=== PATIENT | female | born 1985 ===

== ENCOUNTER 2020-04-04 20:00 | Emergency (ER) | payer MEDICAID, SELFPAY ==
[2020-04-04 20:03] VITALS: BP 99/52; PULSE 78; RESP 16; TEMP 37; O2SAT 100; BMI 22.3
--- NOTE | 2020-04-04 21:19 | PC.NURSE ---
PER MD ROBERTO CHAHAL VERBAL ORDER TO BEDSIDE. RN WITNESS TO [facility]RE ABCSESS NOT READY TO BE DRAINED PER MD MEJIA. AGUILA RETURNED TO [facility].
--- NOTE | 2020-04-04 21:23 | ED_ITS ---
HPI - Skin/Abscess/Foreign Bdy General Chief complaint: Skin/Abscess/Foreign Body Stated complaint: ABSCESS Time Seen by Provider: 04/04/20 20:51 Source: patient Mode of arrival: ambulatory Limitations: no limitations History of Present Illness HPI narrative: 34-year-old female who presents to emergency department for evaluation of an abscess in her right groin area. She states that she has 2 small abscesses that have gotten progressively worse over the past week. She states that she is having moderate to severe pain over the abscesses. She describes the pain as a sharp burning pain which is constant and is 8/10. She denies systemic symptoms such as fever, chills, nausea, vomiting, fatigue or weakness. She states that she gets these cysts often and she had a cyst 1 year prior. She has never had to have the cyst I&D. She states that the pain has gotten to the point where she is having trouble working despite taking tramadol. Related Data Previous Rx's Medication Instructions Recorded doxycycline hyclate [Morgidox] 100 mg PO BID 7 Days #14 cap 04/04/20 oxycodone 5 mg PO Q4H PRN 3 Days #10 tab 04/04/20 Allergies Allergy/AdvReac Type Severity Reaction Status Date / Time No Known Allergies Allergy Verified 04/04/20 20:09 [No Known Allergies*] Review of Systems Review of Systems: Yes all other systems are reviewed and are negative Constitutional: Constitutional: Reports as per HPI Eyes: Eyes: Reports as per HPI ENT: Reports as per HPI Cardiovascular: Cardiovascular: Reports as per HPI Respiratory: Respiratory: Reports as per HPI Gastrointestinal: Gastrointestinal: Reports as per HPI Genitourinary: Genitourinary: Reports as per HPI Musculoskeletal: Musculoskeletal: Reports as per HPI Integumentary/Breasts: Skin/Breast: Reports as per HPI Neurologic: Reports as per HPI Psychiatric: Psychiatric: Reports as per HPI Allergic/Immunologic: Allergic/Immunologic: Reports as per HPI PMFSH Past Medical History [facility] Narrative: 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 She denies tobacco, alcohol and drug use. Medical History (Updated 04/04/20 @ 21:29 by Diego Rodriguez MD) Circulation problem Social History Social History Alcohol intake: never Smoked in Last 30 Days: No Use of substances other than those prescribed or required for medical reasons: No Advance Directives: No Advance Directives Information Provided: Yes Physical Exam Vital Signs: Vital Signs: Last Vital Signs Temp 98.6 F 04/04/20 20:03 Pulse 78 04/04/20 20:03 Resp 16 04/04/20 20:03 BP 99/52 L 04/04/20 20:03 Pulse Ox 100 04/04/20 20:03 Body Mass Index 22.3 Const: General: cooperative and healthy appearing Nutritional Appearance: average body habitus Orientation/consciousness: oriented to person and oriented to place Limitations: no limitations HENMT: Head: Yes normal to inspection Ears: hearing grossly normal bilaterally General nose exam: Normal external nose present Eyes: General: appearance normal, both eyes and all related structures Neck: Neck: Yes normal visual inspection : External Female Exam: other (2 small cystic lesions right inguinal crease, tender, erythematous, indurat) Neuro: General: oriented to person and oriented to place Cognition (Neuro): normal cognition Psych: Appearance: grossly normal and well kempt Mental Status: mental status grossly normal Speech and movement: Normal speech and movement present Course Course Course Narrative: A 34-year-old female who presents to the emergency department for evaluation of painful cyst in the right groin area x1 week. Patient has had similar cysts in the past and has never had to have an IUD. Physical examination revealed 2 small cysts in the right inguinal area which are indurated and slightly erythematous. At this time I do not think that these cysts need to be incised and drained and I did discuss this with the patient. The patient was started on doxycycline 100 mg twice a day for 7 days. She was advised to take ibuprofen and Tylenol for her pain. For pain not relieved by these 2 medications she was given a limited prescription for oxycodone and I did discuss the potential of this drug with the patient. The patient was also given a note not return to work for 3 days since the pain is limiting her ability to work. [facility] revealed multiple prescriptions for gabapentin and tramadol, these are medications the patient takes for chronic hand pain. Discharge Plan Discharge Clinical Impression: Abscess of skin or subcutaneous tissue Patient Disposition: Home, Self-Care Instructions: Abscess (ED) Additional Instructions: At this time, I think you have an early abscess to the right groin area that does not need to be cut open and drained. Use heat to the area for 20 minutes 4 to 6 times a day for the next 2-3 days. Heat will increase the blood flow to the area and help the healing process. Take doxycycline 100 mg twice a day for 7 days. This is an antibiotic will help the healing process. Take ibuprofen 200 mg pills, 3 pills every 6 hours as needed for pain. Take Tylenol 325 mg pills, 2 pills every 4 hours as needed for pain. For pain not relieved by ibuprofen or Tylenol take oxycodone 5 mg pills, 1 pill every 4-6 hours as needed for pain. This medication will make you sleepy do not drive or work after taking this medication. This medication can be addicting and if you are concerned about addiction you can ask the pharmacy for last pills. Follow-up with your doctor in 2 days. Return to the emergency department if her symptoms get worse or if you develop any new symptoms that are concerning to you. Prescriptions: New doxycycline hyclate [Morgidox] 100 mg capsule 100 mg PO BID 7 Days Qty: 14 RF: 0 oxycodone 5 mg tablet 5 mg PO Q4H PRN (Reason: pain) 3 Days Qty: 10 RF: 0
--- NOTE | 2020-04-04 21:25 | PC.NURSE ---
PT STATES SHE HAS A RIDE HOME.
[2020-04-04] MEDS: oxyCODONE HCl Immed Release 5 MG TABLET PO (21:31)
== END 2020-04-04 21:45 | disposition home or self-care (01) ==
PROVIDERS: Emergency Provider Emergency Medicine Emergency Medical Services
DX: L02.214 Cutaneous abscess of groin (principal); R10.2 Pelvic and perineal pain
CPT/HCPCS: 99284

== ENCOUNTER → 2020-07-04 15:16 | Outpatient (BNVA) | payer MEDICAID, SELFPAY | PROVIDERS: PCP Family Medicine; Visit Provider Student in an Organized Health Care Education/Training Program | DX: I73.00 Raynaud's syndrome without gangrene (principal); F17.200 Nicotine dependence, unspecified, uncomplicated; Z71.6 Tobacco abuse counseling; Z79.899 Other long term (current) drug therapy | CPT/HCPCS: 99202 ==

== ENCOUNTER 2020-08-08 09:53 | Outpatient (REF) | payer MEDICAID, SELFPAY ==
--- NOTE | ~2020-08-08 | XR_ITS ---
EXAMINATION: XR HAND, BILATERAL CLINICAL INFORMATION: Pain COMPARISON: None available at the time of this dictation. TECHNIQUE: Frontal lateral oblique total of 6 views of right and left hands were obtained. FINDINGS: There is no fracture or dislocation. Radiocarpal, intercarpal, carpometacarpal, metacarpophalangeal and interphalangeal joints are intact. There are no osteolytic or osteoblastic lesions. There are no bone erosions. Surrounding soft tissue unremarkable. XR/XR hand LT min 3V IMPRESSION: No significant osseous changes. No evidence of arthritis. No bone erosions.
--- NOTE | ~2020-08-08 | XR_ITS ---
EXAMINATION: XR HAND, BILATERAL CLINICAL INFORMATION: Pain COMPARISON: None available at the time of this dictation. TECHNIQUE: Frontal lateral oblique total of 6 views of right and left hands were obtained. FINDINGS: There is no fracture or dislocation. Radiocarpal, intercarpal, carpometacarpal, metacarpophalangeal and interphalangeal joints are intact. There are no osteolytic or osteoblastic lesions. There are no bone erosions. Surrounding soft tissue unremarkable. XR/XR hand RT min 3V IMPRESSION: No significant osseous changes. No evidence of arthritis. No bone erosions.
[2020-08-08 10:54] LABS: MANUAL DIFF FLAG NO
[2020-08-08 11:02] LABS: Basophils Percent Auto 0.7 % (0-2); Eosinophils Absolute Auto 0.2 X10*3/uL (0.0-0.4); Hemoglobin 13.6 g/dl (12.0-16.0); Imm Gran Abs Auto 0.03 X10*3/uL (0.00-0.03); Imm Gran Pct Auto 0.5 % (0.0-0.4); Lymphocytes Absolute Auto 1.7 X10*3/uL (1.2-4.9); Lymphocytes Percent Auto 29.1 % (20-40); Mean Corpuscular HGB Conc 32.4 g/dl (31.0-35.0); Mean Corpuscular Hemoglobin 31.1 pg (27.0-33.0); Mean Corpuscular Volume 96.1 fL (80-98); Mean Platelet Volume 10.1 fL (9.4-12.3); Monocytes Absolute Auto 0.5 X10*3/uL (0.1-1.2); Monocytes Percent Auto 8.1 % (2-11); Neutrophils Absolute Auto 3.4 X10*3/uL (2.0-8.3); Neutrophils Percent Auto 57.6 % (45-73); Platelet Count 184 X10*3/uL (160-400); Red Blood Count 4.37 X10*6/uL (4.20-5.50); Red Cell Distribution Width 13.3 % (11.0-16.0); White Blood Count 5.9 X10*3/uL (4.8-10.8)
[2020-08-08 11:23] LABS: Alanine Aminotransferase 10 U/L (0-31); Albumin Level 4.4 g/dL (3.5-5.0); Alkaline Phosphatase 68 U/L (39-117); Anion Gap 15 (12-20); Aspartate Amino Transferase 16 U/L (5-31); Bilirubin Total 0.7 mg/dL (0.0-1.0); Blood Urea Nitrogen 10 mg/dL (9-16); C Reactive Protein 0.04 mg/dL (< or = 0.50); Calcium 9.1 mg/dL (8.4-10.2); Carbon Dioxide 26 mmol/L (22-29); Chloride 105 mmol/L (96-108); Estimated Glomerular Filt Rate > 60; Glucose Random 95 mg/dL (60-115); Potassium 3.6 mmol/L (3.3-5.1); Sodium 142 mmol/L (135-145)
[2020-08-08 12:17] LABS: Erythrocyte Sedimentation Rate 7 MM/HR (0-20)
[2020-08-09 14:01] LABS: Antibody to SS-A Antigen <1.0 NEG AI (<1.0 NEG); Antibody to SS-B Antigen <1.0 NEG AI (<1.0 NEG); Beta-2 Microglobulin, Serum 1.54 mg/L (< OR = 2.51); Scleroderma 70 Antibody <1.0 NEG AI (<1.0 NEG)
[2020-08-09 22:28] LABS: Anti Nuclear Antibody Screen POSITIVE (NEGATIVE); Anti Nuclear Antibody Titer 1:40 titer
[2020-08-11 22:27] LABS: Cardiolipin IgG Ab <14 GPL; Cardiolipin IgM Ab 18 MPL
[2020-08-12 13:51] LABS: PTT (LAC) Screen 31 sec (< OR = 40)
== END 2020-08-08 09:54 | disposition home or self-care (01) ==
LOC: HO.LAB 09:53
PROVIDERS: PCP Family Medicine; Visit Provider Student in an Organized Health Care Education/Training Program
DX: I73.00 Raynaud's syndrome without gangrene (principal); M79.642 Pain in left hand; M79.641 Pain in right hand
CPT/HCPCS: 36415; 73130; 80053; 82232; 85025; 85597; 85613; 85652; 85730; 86038; 86039; 86140; 86147; 86235

== ENCOUNTER 2020-08-16 03:41 | Emergency (ER) | payer MEDICAID, SELFPAY ==
[2020-08-16 04:51] VITALS: BP 119/70; PULSE 98; RESP 16; TEMP 36.6; O2SAT 100; BMI 22.3
--- NOTE | 2020-08-16 05:10 | PC.NURSE ---
Patient ambulated to the bed wth a steady gait, while the charge out clerk was walking the patient back the patient continued to state im glad someone came to work today .Patient was asked if she needed anything and stated that she was fine.
--- NOTE | 2020-08-16 06:41 | ED.GENADULT ---
HPI - General Adult General Chief complaint: General Medical Stated complaint: SINUS INFECTION Time Seen by Provider: 08/16/20 06:41 Source: patient Mode of arrival: ambulatory Limitations: no limitations History of Present Illness HPI narrative: 34 yo female with sinus congestion x 4 days suffers from allergies will not take nasal spray states she takes OTC medications but didn't name them without relief complaint: sinus congestion Onset (ago): day(s) (4) Location: face Radiation: non-radiation Severity: moderate Quality: crushing, dull and constant Pain Consistency: constant Relieving factors: none Exacerbating factors: other Associated symptoms: headaches Treatments prior to arrival: other (allergy medications) Related Data Home Medications Medication Instructions Recorded Confirmed amlodipine 2.5 mg tablet 2.5 mg PO DAILY 07/04/20 aspirin 81 mg tablet,delayed 81 mg PO DAILY 07/04/20 release gabapentin 100 mg capsule 100 mg PO TID 07/04/20 tramadol 50 mg tablet 50 mg PO TID PRN 07/04/20 Previous Rx's Medication Instructions Recorded amoxicillin-pot clavulanate 1 tab PO BID #13 tab 08/16/20 [Augmentin] prednisone 40 mg PO DAILY 4 Days #8 tab 08/16/20 Allergies Allergy/AdvReac Type Severity Reaction Status Date / Time No Known Allergies Allergy Verified 04/04/20 20:09 [No Known Allergies*] Review of Systems Review of Systems: Constitutional : No Fever, No Chills, No Fatigue ENT/Mouth : No sore throat, pos Rhinorrhea, pos sinus pain Eyes: No Eye Pain, No Swelling, No Redness Cardiovascular : No Chest Pain, No SOB, No Dyspnea on Exertion Respiratory : No Cough, No Sputum Gastrointestinal : No Nausea, No Vomiting, No Diarrhea, No abdominal Pain Genitourinary : No Dysuria, No Urinary Frequency, No Hematuria, Musculoskeletal : No joint pain, No Myalgias, No Joint Swelling Skin : No Skin Lesions, No rash Neuro : No Weakness, No Numbness, No Dizziness, positive Headache Psych : No Anxiety/Panic, No Depression PMFSH Past Medical History Attestation statement: The following information was validated with the patient. Medical History Allergic rhinitis Circulation problem Raynauds phenomenon Surgical History Hx of tonsillectomy Social History Social History Smoking Status: Light tobacco smoker Advance Directives: No Physical Exam Vital Signs: Vital Signs: Last Vital Signs Temp 97.9 F 08/16/20 04:51 Pulse 98 08/16/20 04:51 Resp 16 08/16/20 04:51 BP 119/70 08/16/20 04:51 Pulse Ox 100 08/16/20 04:51 Body Mass Index 22.3 Appearance: Alert. Oriented X3. No acute distress. Eyes: Pupils equal, round and reactive to light. ENT: Pharynx normal. tender bilateral max sinus, nasal congestion noted Neck: Normal inspection. Neck supple. CVS: Normal heart rate and rhythm. Pulses normal. Respiratory: No respiratory distress. Breath sounds normal. Abdomen: Soft and nontender. Skin: Skin warm and dry. Normal skin color. Normal skin turgor. Extremities: No lower extremity edema. No calf ttp Neuro: Oriented X 3. No motor deficit. No sensory deficit. Medical Decision Making MDM Narrative Medical decision making narrative: 34 yo female with raynaud's allergic rhinits failing OTC allergy medications likely sinusitis at this time will obtain COVID swab start on augmentin and prednisone - anticipate DC home Lab Data Labs: Lab Results 08/16/20 Range/Units 06:46 COVID-19 ([facility]AS) Negative (Negative) COVID-19 Clin Com See Note Discharge Plan Discharge Clinical Impression: Sinusitis Qualifiers: Sinusitis location: maxillary Chronicity: acute Recurrence: recurrent Qualified Code(s): J01.01 - Acute recurrent maxillary sinusitis Patient Disposition: Home, Self-Care Instructions: Sinusitis (ED) Additional Instructions: return to ED for any worsening symptoms or concerns COVID negative Prescriptions: New prednisone 20 mg tablet 40 mg PO DAILY 4 Days Qty: 8 RF: 0 amoxicillin-pot clavulanate [Augmentin] 875-125 mg tablet 1 tab PO BID Qty: 13 RF: 0 No Action aspirin [Adult Low Dose Aspirin] 81 mg tablet,delayed release (DR/EC) 81 mg PO DAILY RF: 0 tramadol 50 mg tablet 50 mg PO TID PRNRF: 0 gabapentin 100 mg capsule 100 mg PO TID RF: 0 amlodipine 2.5 mg tablet 2.5 mg PO DAILY RF: 0 Referrals: [facility] [Primary Care Provider] - 3 days (if not better)
[2020-08-16 07:10] LABS: COVID-19 Test Negative (Negative); IDNOW Serial# 9DD0AD1C
[2020-08-16] MEDS: Ibuprofen 400 MG TABLET PO (07:18)
[2020-08-16] MEDS: Amoxicillin/Potassium Clav 875 MG TABLET PO (07:18)
[2020-08-16] MEDS: predniSONE 20 MG TABLET 40 MG PO (07:19)
== END 2020-08-16 07:24 | disposition home or self-care (01) ==
PROVIDERS: Emergency Provider Emergency Medicine
DX: J01.01 Acute recurrent maxillary sinusitis (principal); Z20.822 Contact with and (suspected) exposure to COVID-19; F17.200 Nicotine dependence, unspecified, uncomplicated; Z71.6 Tobacco abuse counseling; Z79.899 Other long term (current) drug therapy
CPT/HCPCS: 36415; 87635; 99283

== ENCOUNTER 2020-11-18 23:46 | Emergency (ER) | payer MEDICAID, SELFPAY ==
[2020-11-18 23:50] VITALS: BP 113/86; PULSE 67; RESP 18; TEMP 36.6; O2SAT 100; BMI 24.0
[2020-11-19] MEDS: 0.9 % Sodium Chloride 1,000 ML 999 ML IV ×2 (01:00→01:30)
--- NOTE | 2020-11-19 01:06 | PC.NURSE ---
Addendum entered by Lilian Stapleton 11/19/20 01:10: Pt aware of pending urine sample, unable to provide at this time. Original Note: IV established, labs obtained, pt medicated per MAR, IVF infusing. Awaiting primary MD burgess.
[2020-11-19 01:27] LABS: Basophils Absolute Auto 0.1 X10*3/uL (0.0-0.2); Basophils Percent Auto 0.8 % (0-2); Eosinophils Absolute Auto 0.4 X10*3/uL (0.0-0.4); Eosinophils Percent Auto 4.9 % (0-4); Hematocrit 42.9 % (37-47); Hemoglobin 14.2 g/dl (12.0-16.0); Imm Gran Abs Auto 0.02 X10*3/uL (0.00-0.03); Imm Gran Pct Auto 0.3 % (0.0-0.4); Lymphocytes Absolute Auto 2.7 X10*3/uL (1.2-4.9); Lymphocytes Percent Auto 35.3 % (20-40); MANUAL DIFF FLAG NO; Mean Corpuscular HGB Conc 33.1 g/dl (31.0-35.0); Mean Corpuscular Hemoglobin 31.1 pg (27.0-33.0); Mean Corpuscular Volume 93.9 fL (80-98); Mean Platelet Volume 10.1 fL (9.4-12.3); Monocytes Absolute Auto 0.5 X10*3/uL (0.1-1.2); Monocytes Percent Auto 6.8 % (2-11); Neutrophils Percent Auto 51.9 % (45-73); Platelet Count 184 X10*3/uL (160-400); Red Blood Count 4.57 X10*6/uL (4.20-5.50); Red Cell Distribution Width 13.2 % (11.0-16.0); White Blood Count 7.7 X10*3/uL (4.8-10.8)
--- NOTE | 2020-11-19 01:30 | PC.NURSE ---
UA obtained and sent. IVF infusing per MAR.
[2020-11-19 01:39] LABS: Glucose Urine UA NEG (NEG); Leukocyte Esterase Urine NEG (NEG); Nitrite Urine NEG (NEG); Specific Gravity - Urine 1.025 (1.005-1.025); Urine Blood NEG (NEG); Urine Ketones 15 MG/DL (NEG); Urine Protein TRACE MG/DL (NEG-TRACE)
[2020-11-19 01:40] LABS: Appearance Urine CLEAR; Color Urine DARK YELLOW
[2020-11-19 01:41] LABS: UPreg QC Valid YES; Urine Pregnancy NEGATIVE (NEGATIVE)
[2020-11-19 01:54] LABS: Alanine Aminotransferase 10 U/L (0-31); Albumin Level 4.3 g/dL (3.5-5.0); Alkaline Phosphatase 69 U/L (39-117); Anion Gap 17 (12-20); Aspartate Amino Transferase 21 U/L (5-31); Bilirubin Total 0.8 mg/dL (0.0-1.0); Blood Urea Nitrogen 8 mg/dL (9-16); Calcium 9.3 mg/dL (8.4-10.2); Carbon Dioxide 24 mmol/L (22-29); Chloride 107 mmol/L (96-108); Creatinine Clr Calc Pharmacy 84.7; Estimated Glomerular Filt Rate > 60; Glucose Random 96 mg/dL (60-115); Lipase 10 U/L (8-78); Potassium 4.5 mmol/L (3.3-5.1); Sodium 143 mmol/L (135-145); Total Protein 7.4 g/dL (6.5-8.0)
[2020-11-19] MEDS: Magnesium Hydrox/Alum Hydrox 30 ML ORAL.SUSP PO (02:34)
[2020-11-19] MEDS: Lidocaine HCl Viscous 2 % 15 ML SOLUTION 10 ML MUCOUS MEM (02:34)
--- NOTE | 2020-11-19 02:38 | PC.NURSE ---
Medicated with GI cocktail. Provided with crackers/gingerale. VSS at this time. Awaiting DC.
--- NOTE | 2020-11-19 03:02 | ED_ITS ---
HPI - Nausea/Vomiting/Diarrhea General Chief complaint: Nausea/Vomiting/Diarrhea Stated complaint: nausea and vomiting, ear infection Time Seen by Provider: 11/19/20 00:50 Source: patient Mode of arrival: ambulatory History of Present Illness HPI Narrative: 35-year-old female presents without significant past medical history for 2-3 days of nausea, vomiting, diarrhea that is nonbloody in nature and has not been associated with any fever, chills but unknown whether not contaminated food may be a contributing factor. Otherwise, patient denies any urinary pain/burning/frequency and denies any shortness of breath or chest pain/palpitations. Patient reports were LMP is 5 days ago. Related Data Home Medications Medication Instructions Recorded Confirmed amlodipine 2.5 mg tablet 2.5 mg PO DAILY 07/04/20 aspirin 81 mg tablet,delayed 81 mg PO DAILY 07/04/20 release gabapentin 100 mg capsule 100 mg PO TID 07/04/20 tramadol 50 mg tablet 50 mg PO TID PRN 07/04/20 Previous Rx's Medication Instructions Recorded amoxicillin-pot clavulanate 1 tab PO BID #13 tab 08/16/20 [Augmentin] prednisone 40 mg PO DAILY 4 Days #8 tab 08/16/20 ondansetron HCl [Zofran] 4 mg PO Q8H PRN #7 tab 11/19/20 Allergies Allergy/AdvReac Type Severity Reaction Status Date / Time No Known Allergies Allergy Verified 04/04/20 20:09 [No Known Allergies*] Review of Systems Review of Systems: Pertinent positives and negatives as stated in HPI 10 point review of systems is otherwise negative. [facility] Past Medical History Source: nursing notes reviewed Medical History Allergic rhinitis Circulation problem Raynauds phenomenon Surgical History Hx of tonsillectomy Social History Social History Advance Directives: No Advance Directives Information Provided: No Patient : No Physical Exam Vital Signs: Vital Signs: Last Vital Signs Temp 97.8 F 11/18/20 23:50 Pulse 67 11/18/20 23:50 Resp 18 11/18/20 23:50 BP 113/86 11/18/20 23:50 Pulse Ox 100 11/18/20 23:50 Body Mass Index 24.0 VITAL SIGNS: Reviewed. GENERAL: Well developed, well nourished, in no acute distress. HEAD: Normocephalic/atraumatic EYES: PERRLA, EOMI EARS: Ext canals without abnormality, TMs non-bulging and non-erythematous NOSE: Nares patent bilateral OROPHARYNX: no oral lesions noted, posterior pharynx clear, dry mucosa NECK: Supple, no adenopathy LUNGS: Normal breath sounds. No adventitious sounds or accessory muscle use. SpO2<100> CARDIOVASCULAR: Regular rate and rhythm without noted murmurs ABDOMEN: Soft, non-tender, non-distended with bowel sounds. SKIN: Inspection of the skin reveals no rashes NEUROLOGIC: Alert and oriented x 4. Strength and sensation to light touch were grossly intact x 4. Course Course Course Narrative: 35-year-old female with history and clinical presentation consistent with either gastroenteritis or contaminated food. Patient received IV fluid resuscitation as well as lab work and urinalysis. On review of all investigations there are no acute findings to point towards infectious or anemic etiologies and patient on re-evaluation reports feeling much improved after receiving IV fluids. She is no longer nauseous or vomiting and is tolerating oral intake. She will be discharged in stable condition with instructions to adhere to a bland diet for the next 24-48 hours. MDM - Nausea/Vomiting/Diarrhea Lab Data Result diagrams: 11/19/20 00:59 11/19/20 00:59 Labs: Lab Results 11/19/20 11/19/20 11/19/20 Range/Units 00:59 00:59 01:30 WBC 7.7 (4.8-10.8) X10*3/uL RBC 4.57 (4.20-5.50) X10*6/uL Hgb 14.2 (12.0-16.0) g/dl Hct 42.9 (37-47) % MCV 93.9 (80-98) fL MCH 31.1 (27.0-33.0) pg MCHC 33.1 (31.0-35.0) g/dl RDW 13.2 (11.0-16.0) % Plt Count 184 (160-400) X10*3/uL MPV 10.1 (9.4-12.3) fL Immature Gran % (Auto) 0.3 (0.0-0.4) % Neut % (Auto) 51.9 (45-73) % Lymph % (Auto) 35.3 (20-40) % Harrison % (Auto) 6.8 (2-11) % Eos % (Auto) 4.9 H (0-4) % Baso % (Auto) 0.8 (0-2) % Lymph # (Auto) 2.7 (1.2-4.9) X10*3/uL Harrison # (Auto) 0.5 (0.1-1.2) X10*3/uL Eos # (Auto) 0.4 (0.0-0.4) X10*3/uL Baso # (Auto) 0.1 (0.0-0.2) X10*3/uL Abs Immat Gran (auto) 0.02 (0.00-0.03) X10*3/uL Absolute Neuts (auto) 4.0 (2.0-8.3) X10*3/uL Absolute Nucleated RBC 0.000 (0.0-0.012) X10*3/uL Nucleated RBC % (auto) 0.0 (0.0-0.2) /100WBC Sodium 143 (135-145) mmol/L Potassium 4.5 D (3.3-5.1) mmol/L Chloride 107 (96-108) mmol/L Carbon Dioxide 24 (22-29) mmol/L Anion Gap 17 (12-20) BUN 8 L (9-16) mg/dL Creatinine 0.80 (0.5-1.4) mg/dL Estim Creat Clear Calc 84.7 Estimated GFR > 60 Random Glucose 96 (60-115) mg/dL Calcium 9.3 (8.4-10.2) mg/dL Total Bilirubin 0.8 (0.0-1.0) mg/dL AST 21 (5-31) U/L ALT 10 (0-31) U/L Alkaline Phosphatase 69 (39-117) U/L Total Protein 7.4 (6.5-8.0) g/dL Albumin 4.3 (3.5-5.0) g/dL Lipase 10 (8-78) U/L Urine Color DARK YELLOW Urine Appearance CLEAR Urine pH 6.0 (5.0-8.0) Ur Specific [place] 1.025 (1.005-1.025) Urine Protein TRACE (NEG-TRACE) MG/DL Urine Glucose (UA) NEG (NEG) MG/DL Urine Ketones 15 (NEG) MG/DL Urine Blood NEG (NEG) Urine Nitrite NEG (NEG) Ur Leukocyte Esterase NEG (NEG) Urine Test (NEGATIVE) 11/19/20 Range/Units 01:30 WBC (4.8-10.8) X10*3/uL RBC (4.20-5.50) X10*6/uL Hgb (12.0-16.0) g/dl Hct (37-47) % MCV (80-98) fL MCH (27.0-33.0) pg MCHC (31.0-35.0) g/dl RDW (11.0-16.0) % Plt Count (160-400) X10*3/uL MPV (9.4-12.3) fL Immature Gran % (Auto) (0.0-0.4) % Neut % (Auto) (45-73) % Lymph % (Auto) (20-40) % Harrison % (Auto) (2-11) % Eos % (Auto) (0-4) % Baso % (Auto) (0-2) % Lymph # (Auto) (1.2-4.9) X10*3/uL Harrison # (Auto) (0.1-1.2) X10*3/uL Eos # (Auto) (0.0-0.4) X10*3/uL Baso # (Auto) (0.0-0.2) X10*3/uL Abs Immat Gran (auto) (0.00-0.03) X10*3/uL Absolute Neuts (auto) (2.0-8.3) X10*3/uL Absolute Nucleated RBC (0.0-0.012) X10*3/uL Nucleated RBC % (auto) (0.0-0.2) /100WBC Sodium (135-145) mmol/L Potassium (3.3-5.1) mmol/L Chloride (96-108) mmol/L Carbon Dioxide (22-29) mmol/L Anion Gap (12-20) BUN (9-16) mg/dL Creatinine (0.5-1.4) mg/dL Estim Creat Clear Calc Estimated GFR Random Glucose (60-115) mg/dL Calcium (8.4-10.2) mg/dL Total Bilirubin (0.0-1.0) mg/dL AST (5-31) U/L ALT (0-31) U/L Alkaline Phosphatase (39-117) U/L Total Protein (6.5-8.0) g/dL Albumin (3.5-5.0) g/dL Lipase (8-78) U/L Urine Color Urine Appearance Urine pH (5.0-8.0) Ur Specific Colcord (1.005-1.025) Urine Protein (NEG-TRACE) MG/DL Urine Glucose (UA) (NEG) MG/DL Urine Ketones (NEG) MG/DL Urine Blood (NEG) Urine Nitrite (NEG) Ur Leukocyte Esterase (NEG) Urine Test NEGATIVE (NEGATIVE) Discharge Plan Discharge Clinical Impression: Gastroenteritis, Dehydration Patient Disposition: Home, Self-Care Instructions: Dehydration (ED), Gastroenteritis (ED) Additional Instructions: 1. Continue to stay well hydrated with water and stick with a bland diet (steam dries, bananas, avoid spicy/fatty foods or extreme of temperatures). 2. Follow-up with your primary care provider for re-evaluation and further outpatient management. Return to the ER for acute worsening of symptoms. Prescriptions: New ondansetron HCl [Zofran] 4 mg tablet 4 mg PO Q8H PRN (Reason: nausea and vomiting) Qty: 7 RF: 0 No Action prednisone 20 mg tablet 40 mg PO DAILY 4 Days Qty: 8 RF: 0 amoxicillin-pot clavulanate [Augmentin] 875-125 mg tablet 1 tab PO BID Qty: 13 RF: 0 aspirin [Adult Low Dose Aspirin] 81 mg tablet,delayed release (DR/EC) 81 mg PO DAILY RF: 0 tramadol 50 mg tablet 50 mg PO TID PRNRF: 0 gabapentin 100 mg capsule 100 mg PO TID RF: 0 amlodipine 2.5 mg tablet 2.5 mg PO DAILY RF: 0 Referrals: [facility] [Primary Care Provider] - 2 days
--- NOTE | 2020-11-19 03:20 | PC.NURSE ---
Pt tolerating PO well. Provided with DC paperwork.
[2020-11-19 03:21] VITALS: BP 109/69; PULSE 72; RESP 16; O2SAT 97
== END 2020-11-19 03:23 | disposition home or self-care (01) ==
PROVIDERS: Emergency Provider Student in an Organized Health Care Education/Training Program
DX: K52.9 Noninfective gastroenteritis and colitis, unspecified (principal); E86.0 Dehydration
CPT/HCPCS: 36415; 80053; 81003; 81025; 83690; 85025; 96361; 96374; 99284; J2405

== ENCOUNTER 2023-01-24 12:44 | Emergency (ER) | payer MEDICAID, SELFPAY ==
--- NOTE | ~2023-01-24 | XR_ITS ---
EXAMINATION: XR RIBS, RIGHT CLINICAL INFORMATION: Right lower rib pain COMPARISON: Previous chest x-ray February 2017 TECHNIQUE: 3 views of the right ribs and one view of the chest were obtained. FINDINGS: Lungs are clear. No consolidation, pneumothorax, or pleural effusion. The cardiomediastinal silhouette and pulmonary vasculature are normal. Osseous structures are unremarkable. Ribs are intact. No fractures are identified. XR/XR ribs RT min 3V w CXR1V IMPRESSION: Unremarkable examination.
[2023-01-24 12:48] VITALS: BP 98/64; PULSE 87; RESP 16; TEMP 37.3; O2SAT 97; BMI 25.5
--- NOTE | 2023-01-24 12:48 | ED.GENADULT ---
HPI - General Adult General Chief complaint: General Medical Stated complaint: R Side Pain No Injury Time Seen by Provider: 01/24/23 13:02 Source: patient Mode of arrival: ambulatory Limitations: no limitations History of Present Illness HPI narrative: 37 yo female with a history of raynauds disease here with complaints of 5 days of atraumatic right pain which is worsened with breathing, palpation and positions. No shortness of breath, cough, fever, urinary symptoms, abdominal pain, vomiting or diarrhea, leg swelling or leg pain. Taking ibuprofen OTC with continued symptoms. Patient reports maternal history of blood clot. Patient does smoke. No OCP use. No recent travel or sick contact. Related Data Home Medications Medication Instructions Recorded Confirmed amlodipine 2.5 mg tablet 2.5 mg PO DAILY 07/04/20 aspirin 81 mg tablet,delayed 81 mg PO DAILY 07/04/20 release (Adult Low Dose Aspirin) gabapentin 100 mg capsule 100 mg PO TID 07/04/20 tramadol 50 mg tablet 50 mg PO TID PRN 07/04/20 Previous Rx's Medication Instructions Recorded amoxicillin 875 mg-potassium 1 tab PO BID #13 tabs 08/16/20 clavulanate 125 mg tablet (Augmentin) prednisone 20 mg tablet 40 mg (2 x 20 mg) PO DAILY 4 days 08/16/20 #8 tabs ondansetron HCl 4 mg tablet 4 mg PO Q8H PRN nausea and 11/19/20 (Zofran) vomiting #7 tabs cyclobenzaprine 10 mg tablet 10 mg PO TID PRN muscle spasm #15 01/24/23 tabs lidocaine 5 % topical patch 1 patch topical DAILY #15 ea 01/24/23 (Lidoderm) naproxen 500 mg tablet 500 mg PO BID PRN pain #30 tabs 01/24/23 Allergies Allergy/AdvReac Type Severity Reaction Status Date / Time No Known Allergies Allergy Verified 01/24/23 12:50 [No Known Allergies*] Review of Systems Review of Systems: Yes all other systems are reviewed and are negative Constitutional: Constitutional: Reports no additional constitutional complaints, Denies body ache(s), Denies chills, Denies fever(s), Denies headache(s) and Denies weakness Eyes: Eyes: Reports no additional eye complaints and Denies change in vision ENT: Reports system reviewed and no additional complaints, except as documented, Denies dizziness, Denies headache(s), Denies nasal congestion, Denies nasal discharge and Denies neck pain Cardiovascular: Cardiovascular: Reports no additional cardiovascular complaints, Reports chest pain, Denies leg edema and Denies dyspnea Respiratory: Respiratory: Reports no additional respiratory complaints, Denies cough and Denies dyspnea Gastrointestinal: Gastrointestinal: Reports no additional gastrointestinal complaints, Denies abdominal pain, Denies diarrhea, Denies nausea and Denies vomiting Genitourinary: Genitourinary: Reports no additional female genitourinary complaints and Denies urinary incontinence Musculoskeletal: Musculoskeletal: Reports no additional musculoskeletal complaints, Denies back pain, Denies arthralgias, Denies joint swelling, Denies neck pain, Denies numbness and Denies tingling Integumentary/Breasts: Skin/Breast: Reports system reviewed and no additional complaints, except as docu and Denies rash Neurologic: Reports system reviewed and no additional complaints, except as documented, Denies Abnormal speech present, Denies dizziness, Denies headache(s), Denies numbness, Denies tingling and Denies weakness PMFSH Past Medical History Attestation statement: The following information was validated with the patient. Source: old records reviewed and nursing notes reviewed Medical History Allergic rhinitis Raynauds phenomenon Circulation problem Surgical History Hx of tonsillectomy Social History Social History Advance Directives: No Advance Directives Information Provided: No Physical Exam ED Vital Signs: Vital Signs - 24 hr 01/24/23 12:48 Temperature 99.1 F Pulse Rate 87 Respiratory Rate 16 Blood Pressure 98/64 Pulse Oximetry 97 Oxygen Delivery Method Room Air BMI result Body Mass Index 25.5 Const General: cooperative, healthy appearing, comfortable and no acute distress Orientation/consciousness: patient oriented x3 Limitations: no limitations HENMT Head: Yes normal to inspection Ears: hearing grossly normal bilaterally General nose exam: Normal external nose present Face and sinus: Yes normal facial exam Mouth: Normal oral and palatal mucosa present Throat: Yes posterior oropharynx normal Eyes General: appearance normal, both eyes and all related structures Pupils: Equal, round and reactive pupils present Neck Neck: Yes normal visual inspection Chest Chest palpation & inspection: normal inspection of the chest and tenderness (right ribs laterally-no crepitus or ecchymosis ) Resp Effort & Inspection: normal respiratory effort Auscultation: clear to auscultation bilaterally Cardio Rate: regular rate Rhythm: regular rhythm Peripheral pulses: Peripheral pulses 2+ throughout GI Inspection: Yes normal to inspection Palpation (GI): Soft to palpation and nontender Auscultation: normal bowel sounds General: Yes no CVA tenderness Back/Spine/Pelvis Back: no CVA tenderness Thoracic/Lumbar Spine: thoracic and lumbar spine normal to inspection Skin General skin exam: no rashes or lesions noted Neuro General: patient oriented x3, no focal motor deficits and normal sensation to monofilament Cranial nerves: Yes Equal, round and reactive pupils present Cognition (Neuro): normal cognition Speech: No Abnormal speech present Gait exam (Neuro): Normal gait present Motor exam (neuro): 5/5 motor strength present throughout Extrem General: Yes normal to inspection, Yes no pedal edema and Yes no calf tenderness Course Course Course Narrative: RME - 37 yo female presenting to the ER for evaluation of right lower rib pain for the last 5 days. No trauma but feels similar to when she broke a rib in the past. Pain is worse at night with coughing, not worse with eating. Pain w/ movement and deep breaths. PERC Negative. Plan: Xray ribs Reevaluation(s) Reevaluation #1: Labs are unremarkable. UA shows no signs of infection. X-ray is negative for any acute bony abnormality. Pain is worsened with movement and palpation. May be musculoskeletal. Will discharge home with supportive care. Reviewed worrisome signs and symptoms of when to return to the emergency room. Comfortable plan for discharge home. Medications Administered Discontinued Medications Generic Name Dose Route Start Last Admin Trade Name Freq PRN Reason Stop Dose Admin Ketorolac Tromethamine 30 mg 01/24/23 13:36 01/24/23 13:53 Ketorolac Tromethamine 30 Mg/Ml Vial IM 01/24/23 13:37 30 mg ONCE ONE Administration Medical Decision Making Medical Decision Making MDM Narrative: 37 yo female with a history of raynauds disease here with complaints of 5 days of atraumatic right pain which is worsened with breathing, palpation and positions. No shortness of breath, cough, fever, urinary symptoms, abdominal pain, vomiting or diarrhea, leg swelling or leg pain. Taking ibuprofen OTC with continued symptoms. Patient reports maternal history of blood clot. Patient does smoke. No OCP use. No recent travel or sick contact. TTP to right lateral ribs with no crepitus, ecchymosis noted. LS CTA. No focal abdominal pain. Will check x-rays, give analgesia If negative then plan for labs, UA, ur preg Differential Diagnosis Differential Diagnoses: The differential diagnosis associated with the presentation includes rib fracture, PTX, chest wall strain PE-D-dimer negative ACS-atypical for ACS No CVAT, abdominal pain to suggest renal colic, pyelo or cholecystitis Admission/Observation Consideration of admission/observation: Escalation of care including admission/observation considered Likely chest wall strain Low concern for ACS/PE/PTX and need for EKG, troponin, CTA, consultation and/or admission Lab Data MDM Lab Attestation statement: I reviewed the patient's lab results. reviewed labs which are unremarkable 01/24/23 13:41 01/24/23 13:41 Labs: Lab Results 01/24/23 01/24/23 Range/Units 13:41 13:47 WBC 8.0 (4.8-10.8) X10*3/uL RBC 4.45 (4.20-5.50) X10*6/uL Hgb 13.9 (12.0-16.0) g/dl Hct 42.6 (37.0-47.0) % MCV 95.7 (80.0-98.0) fL MCH 31.2 (27.0-33.0) pg MCHC 32.6 (31.0-35.0) g/dl RDW 13.2 (11.0-16.0) % Plt Count 186 (160-400) X10*3/uL MPV 9.8 (9.4-12.3) fL Immature Gran % (Auto) 0.4 (0.0-0.4) % Neut % (Auto) 59.1 (45-73) % Lymph % (Auto) 30.7 (20-40) % [place] % (Auto) 6.1 (2-11) % Eos % (Auto) 3.1 (0-4) % Baso % (Auto) 0.6 (0-2) % Lymph # (Auto) 2.5 (1.2-4.9) X10*3/uL [place] # (Auto) 0.5 (0.1-1.2) X10*3/uL Eos # (Auto) 0.3 (0.0-0.4) X10*3/uL Baso # (Auto) 0.1 (0.0-0.2) X10*3/uL Abs Immat Gran (auto) 0.03 (0.00-0.03) X10*3/uL Absolute Neuts (auto) 4.7 (2.0-8.3) x10*3/uL Absolute Nucleated RBC 0.000 (0.0-0.012) X10*3/uL Nucleated RBC % (auto) 0.0 (0.0-0.2) /100WBC PT 11.0 L (11.1-13.3) SEC INR 0.9 (0.9-1.1) D-Dimer High Sensitivty < 150 NG/ML Sodium 140 (135-145) mmol/L Potassium 4.2 (3.3-5.1) mmol/L Chloride 109 H (96-108) mmol/L Carbon Dioxide 24 (22-29) mmol/L Anion Gap 11 L (12-20) BUN 10 (9-16) mg/dL Creatinine 0.78 (0.5-1.4) mg/dL Estim Creat Clear Calc 93.2 Estimated GFR > 60 Random Glucose 83 (60-115) mg/dL Calcium 9.4 (8.4-10.2) mg/dL Total Bilirubin 0.4 (0.0-1.0) mg/dL Direct Bilirubin 0.2 (0.0-0.5) mg/dL AST 15 (5-31) U/L ALT 10 (0-31) U/L Alkaline Phosphatase 67 (39-117) U/L Total Protein 6.7 (6.5-8.0) g/dL Albumin 3.9 (3.5-5.0) g/dL Lipase 17 (8-78) U/L Urine Color Yellow Urine Appearance Clear Urine pH 5.5 (5.0-9.0) Ur Specific [place] >= 1.030 H (1.005-1.025) Urine Protein Negative (Neg-Trace) mg/dL Urine Glucose (UA) Negative (Negative) mg/dL Urine Ketones Negative (Negative) mg/dL Urine Blood Negative (Negative) Urine Nitrite Negative (Negative) Ur Leukocyte Esterase Negative (Negative) Urine Test NEGATIVE (NEGATIVE) Independent Interpretation I performed an independent interpretation of an: Plain X-Ray Interpretation: I independently reviewed the x-ray and agree with rad report Radiology Impression Discussion of test interpretation with radiology: I have reviewed the radiologist's reading. Radiologist Impression: [address] [address] XRay Report Signed Patient: Pamela Ness MR#: [id number] : 1985 Acct:[id number] Age/Sex: 37 / F ADM Date: 01/24/23 Loc: .ED Attending Dr: Ordering Physician: Nelida Hartman Date of Service: 01/24/23 Procedure(s): XR ribs RT min 3V w CXR1V Accession Number(s): [id number] cc: Physician,None ; Nelida Hartman~ EXAMINATION: XR RIBS, RIGHT CLINICAL INFORMATION: Right lower rib pain COMPARISON: Previous chest x-ray February 2017 TECHNIQUE: 3 views of the right ribs and one view of the chest were obtained. FINDINGS: Lungs are clear. No consolidation, pneumothorax, or pleural effusion. The cardiomediastinal silhouette and pulmonary vasculature are normal. Osseous structures are unremarkable. Ribs are intact. No fractures are identified. XR/XR ribs RT min 3V w CXR1V IMPRESSION: Unremarkable examination. Prescription Management I considered prescription management with: Pain Medication Discharge Plan Discharge Clinical Impression: Chest wall muscle strain Patient Disposition: Home, Self-Care Instructions: Chest Wall Pain (ED) Additional Instructions: Labs are reassuring. Urine shows no signs of infection Chest x-ray shows no rib fractures or pneumonia Apply heat to the area, gentle stretching establish a PCP to follow-up with Prescriptions: New lidocaine [Lidoderm] 5 % adhesive patch,medicated 1 patch topical DAILY Qty: 15 0RF Rx Instructions: leave on most painful area for up to 12 hrs cyclobenzaprine 10 mg tablet 10 mg PO TID PRN (Reason: muscle spasm) Qty: 15 0RF naproxen 500 mg tablet 500 mg PO BID PRN (Reason: pain) Qty: 30 0RF No Action prednisone 20 mg tablet 40 mg PO DAILY 4 Days Qty: 8 0RF amoxicillin-pot clavulanate [Augmentin] 875-125 mg tablet 1 tab PO BID Qty: 13 0RF ondansetron HCl [Zofran] 4 mg tablet 4 mg PO Q8H PRN (Reason: nausea and vomiting) Qty: 7 0RF aspirin [Adult Low Dose Aspirin] 81 mg tablet,delayed release (DR/EC) 81 mg PO DAILY tramadol 50 mg tablet 50 mg PO TID PRN gabapentin 100 mg capsule 100 mg PO TID amlodipine 2.5 mg tablet 2.5 mg PO DAILY Referrals: Physician,None [Primary Care Provider] - 1 week
[2023-01-24 13:45] LABS: MANUAL DIFF FLAG NO
[2023-01-24 13:47] LABS: Basophils Absolute Auto 0.1 X10*3/uL (0.0-0.2); Basophils Percent Auto 0.6 % (0-2); Eosinophils Absolute Auto 0.3 X10*3/uL (0.0-0.4); Eosinophils Percent Auto 3.1 % (0-4); Hematocrit 42.6 % (37.0-47.0); Hemoglobin 13.9 g/dl (12.0-16.0); Imm Gran Abs Auto 0.03 X10*3/uL (0.00-0.03); Imm Gran Pct Auto 0.4 % (0.0-0.4); Lymphocytes Absolute Auto 2.5 X10*3/uL (1.2-4.9); Lymphocytes Percent Auto 30.7 % (20-40); Mean Corpuscular HGB Conc 32.6 g/dl (31.0-35.0); Mean Corpuscular Hemoglobin 31.2 pg (27.0-33.0); Mean Corpuscular Volume 95.7 fL (80.0-98.0); Mean Platelet Volume 9.8 fL (9.4-12.3); Monocytes Absolute Auto 0.5 X10*3/uL (0.1-1.2); Monocytes Percent Auto 6.1 % (2-11); Neutrophils Absolute Auto 4.7 x10*3/uL (2.0-8.3); Neutrophils Percent Auto 59.1 % (45-73); Platelet Count 186 X10*3/uL (160-400); Red Blood Count 4.45 X10*6/uL (4.20-5.50); Red Cell Distribution Width 13.2 % (11.0-16.0)
[2023-01-24] MEDS: Ketorolac Tromethamine 30 MG/ML VIAL IM (13:53)
[2023-01-24 13:59] LABS: INTERNATIONAL NORM RATIO 0.9 (0.9-1.1)
[2023-01-24 14:15] LABS: Appearance Urine Clear; Color Urine Yellow; Glucose Urine UA Negative (Negative); Leukocyte Esterase Urine Negative (Negative); Nitrite Urine Negative (Negative); PH 5.5 (5.0-9.0); Specific Gravity - Urine >= 1.030 (1.005-1.025); Urine Blood Negative (Negative); Urine Ketones Negative (Negative); Urine Pregnancy NEGATIVE (NEGATIVE); Urine Protein Negative (Neg-Trace)
[2023-01-24 14:16] LABS: UPreg QC Valid YES
[2023-01-24 14:23] LABS: Alanine Aminotransferase 10 U/L (0-31); Albumin Level 3.9 g/dL (3.5-5.0); Alkaline Phosphatase 67 U/L (39-117); Anion Gap 11 (12-20); Aspartate Amino Transferase 15 U/L (5-31); Bilirubin Direct 0.2 mg/dL (0.0-0.5); Bilirubin Total 0.4 mg/dL (0.0-1.0); Blood Urea Nitrogen 10 mg/dL (9-16); Calcium 9.4 mg/dL (8.4-10.2); Carbon Dioxide 24 mmol/L (22-29); Chloride 109 mmol/L (96-108); Creatinine Clr Calc Pharmacy 93.2; Estimated Glomerular Filt Rate > 60; Glucose Random 83 mg/dL (60-115); Lipase 17 U/L (8-78); Potassium 4.2 mmol/L (3.3-5.1); Sodium 140 mmol/L (135-145); Total Protein 6.7 g/dL (6.5-8.0)
[2023-01-24 14:24] LABS: D Dimer High Sensitivity < 150 NG/ML
== END 2023-01-24 15:11 | disposition home or self-care (01) ==
PROVIDERS: Nurse Practitioner Family; Emergency Provider Emergency Medicine
DX: R07.89 Other chest pain (principal); R07.81 Pleurodynia; Z79.899 Other long term (current) drug therapy
CPT/HCPCS: 36415; 71101; 80048; 80076; 81003; 81025; 83690; 85025; 85379; 85610; 96372; 99283; 99284; J1885

== ENCOUNTER 2024-08-01 11:56 | Emergency (ER) | payer MEDICAID, SELFPAY ==
--- NOTE | ~2024-08-01 | XR_ITS ---
EXAMINATION: XR CHEST 2 VIEWS HISTORY: pain COMPARISON: Comparison is made with the prior examination dated 01/24/2023. FINDINGS: PA and lateral views of the chest are submitted. The lungs are expanded and clear. There is no pleural effusion, pneumothorax, or pulmonary vascular congestion. The heart is normal in size. The bones are intact. XR/XR chest 2V IMPRESSION: No acute cardiopulmonary abnormality. Electronically signed by: Simba Garland MD 08/01/2024 12:57 PM EDT
[2024-08-01 12:03] VITALS: BP 133/67; PULSE 97; RESP 19; TEMP 36.6; O2SAT 99; BMI 27.2
--- NOTE | 2024-08-01 12:03 | ED.GENADULT ---
HPI - General Adult General Chief complaint: General Medical Stated complaint: Breast pain radiating to back Time Seen by Provider: 08/01/24 14:17 Source: patient Mode of arrival: ambulatory Limitations: no limitations History of Present Illness ED Provider: Dr. Diego Rodriguez HPI narrative: 38-year-old female with no significant past medical history who presents emergency department for evaluation of left anterior chest pain which started Wednesday night. She states that it came on gradually. She describes the pain is a throbbing sensation with the last 1-2 minutes but continues to come back frequently. She states that the pain he was now located across her entire chest and in her back. The pain is worse with movement and with breathing. She denied shortness of breath or dyspnea on exertion. She denied fever, chills, cough, nausea, vomiting, diarrhea. This is a 1st episode of this type of pain. She has been taking ibuprofen and Tylenol without any relief. The patient works as a [employer] and she states that the pain was moderate to severe and she could not finish her work shift therefore she came to the emergency department for evaluation. Related Data Home Medications ?Medication ?Instructions ?Recorded ?Confirmed amlodipine 2.5 mg tablet 2.5 mg PO DAILY 07/04/20 aspirin 81 mg tablet,delayed 81 mg PO DAILY 07/04/20 release (Adult Low Dose Aspirin) gabapentin 100 mg capsule 100 mg PO TID 07/04/20 tramadol 50 mg tablet 50 mg PO TID PRN 07/04/20 Previous Rx's ?Medication ?Instructions ?Recorded amoxicillin 875 mg-potassium 1 tab PO BID #13 tabs 08/16/20 clavulanate 125 mg tablet (Augmentin) prednisone 20 mg tablet 40 mg (2 x 20 mg) PO DAILY 4 days 08/16/20 #8 tabs ondansetron HCl 4 mg tablet 4 mg PO Q8H PRN nausea and 11/19/20 (Zofran) vomiting #7 tabs cyclobenzaprine 10 mg tablet 10 mg PO TID PRN muscle spasm #15 01/24/23 tabs lidocaine 5 % topical patch 1 patch topical DAILY #15 ea 01/24/23 (Lidoderm) naproxen 500 mg tablet 500 mg PO BID PRN pain #30 tabs 01/24/23 ketorolac 10 mg tablet 10 mg PO Q6H PRN pain 5 days #20 08/01/24 tabs Allergies Allergy/AdvReac Type Severity Reaction Status Date / Time No Known Allergies Allergy Verified 08/01/24 12:05 [No Known Allergies*] Review of Systems Review of Systems: Yes all other systems are reviewed and are negative [facility] Past Medical History [facility] Narrative: Social history: She smokes 4 cigarettes per day times 15 years. She denies alcohol use. She smokes 3 marijuana blunts daily, denies other drug use. Medical History Allergic rhinitis Raynauds phenomenon Circulation problem Surgical History Hx of tonsillectomy Social History Social History Advance Directives: No Advance Directives Information Provided: Yes Do you have a plan to hurt others: No Plan Physical Exam ED Vital Signs: Vital Signs - 24 hr 08/01/24 12:03 Temperature 98 F Pulse Rate 97 Respiratory Rate 19 Blood Pressure 133/67 Pulse Oximetry 99 Oxygen Delivery Method Room Air BMI result Body Mass Index 27.2 Vital signs were normal. Exam: General: Awake, alert in no distress Head: Normocephalic, atraumatic EENT: PERRL, Lids normal, sclera normal, conjunctiva normal, nose normal , ears normal, throat without erythema or exudates Neck: Supple, no adenopathy Lung: breath sounds symmetric, no wheezing, rales or rhonchi Chest: symmetric movement, patient has tenderness palpation of her left costochondral joints Heart: regular rate and rhythm, normal S1, S2 no murmurs or rubs Abdomen: soft, non-tender, nondistended, normal bowel sounds Back: no vertebral tenderness, no CVAT Extremities: no deformities, moves all extremities symmetrically Neuro: Awake, alert, oriented, normal speech, cranial nerves intact, moves all extremities symmetrically Psych: Pleasant, cooperative Course Course Course Narrative: RME, this is a rapid medical exam performed by Mustapha Murdock please refer to primary provider for complete H&P- 38 year old female presents for evaluation of left sided chest pain. She reports pain under her left breast that started 3 days ago. Pain now radiates to right upper abdomen and chest. Plan for cardiac workup Medical Decision Making Medical Decision Making [facility] Narrative: 38-year-old female with no significant past medical history who presents emergency department for evaluation of left anterior chest pain which started Wednesday night. Pain is a moderate to severe throbbing pain which will last 1-2 minutes but comes back frequently, pain is worse with breathing and with movement. Patient denied shortness of breath or dyspnea on exertion. She denied fever, chills, cough. Patient was unable to finish her work shift today secondary to pain so she came to the emergency department for evaluation. Patient was been taking ibuprofen and Tylenol with no relief for pain. Vital signs were normal. Exam did reveal tenderness palpation of her costochondral joints in her left chest area. Differential diagnosis: ?Includes but is not limited to myocardial infarction, myocardial ischemia, pneumonia, bronchitis, pneumothorax, costochondritis, chest wall pain Course: 14:49 My interpretation patient's laboratory evaluation is as follows: CBC was normal. CMP revealed a low potassium of 3.2 otherwise was unremarkable. Troponin was below detectable limits. COVID-19, influenza and RSV tests were negative. Quantitative beta-hCG was below detectable limits. Twelve EKG was unremarkable and unchanged from 2017. Patient's chest x-ray revealed no acute findings. Patient was presentation is consistent with costochondritis. She was given Toradol 60 mg IM with some relief for pain. Patient was prescribed Toradol 10 mg every 6 hours as needed for pain. She was given printed and verbal instructions discharged home. She was also given a return to work note for 08/04/2024 Admission/Observation Consideration of admission/observation: Escalation of care including admission/observation considered (Yes) Lab Data [facility] Lab Attestation statement: I reviewed the patient's lab results. 08/01/24 12:12 08/01/24 12:12 Labs: Lab Results 08/01/24 Range/Units 12:12 WBC 8.3 (4.8-10.8) X10*3/uL RBC 4.61 (4.20-5.50) X10*6/uL Hgb 14.3 (12.0-16.0) g/dl Hct 41.8 (37.0-47.0) % MCV 90.7 (80.0-98.0) fL MCH 31.0 (27.0-33.0) pg MCHC 34.2 (31.0-35.0) g/dl RDW 13.3 (11.0-16.0) % Plt Count 205 (160-400) X10*3/uL MPV 9.5 (9.4-12.3) fL Immature Gran % (Auto) 0.5 H (0.0-0.4) % Neut % (Auto) 61.0 (45-73) % Lymph % (Auto) 29.6 (20-40) % [place] % (Auto) 6.3 (2-11) % Eos % (Auto) 2.1 (0-4) % Baso % (Auto) 0.5 (0-2) % Lymph # (Auto) 2.5 (1.2-4.9) X10*3/uL [place] # (Auto) 0.5 (0.1-1.2) X10*3/uL Eos # (Auto) 0.2 (0.0-0.4) X10*3/uL Baso # (Auto) 0.0 (0.0-0.2) X10*3/uL Abs Immat Gran (auto) 0.04 H (0.00-0.03) X10*3/uL Absolute Neuts (auto) 5.1 (2.0-8.3) x10*3/uL Absolute Nucleated RBC 0.000 (0.0-0.012) X10*3/uL Nucleated RBC % (auto) 0.0 (0.0-0.2) /100WBC Sodium 141 (135-145) mmol/L Potassium 3.2 L (3.3-5.1) mmol/L Chloride 110 H (96-108) mmol/L Carbon Dioxide 27 (22-29) mmol/L Anion Gap 7 L (12-20) BUN 9 (9-16) mg/dL Creatinine 0.81 (0.5-1.4) mg/dL Estim Creat Clear Calc 91.5 Estimated GFR > 60 Random Glucose 82 (60-115) mg/dL Calcium 9.1 (8.4-10.2) mg/dL Total Bilirubin 0.5 (0.0-1.0) mg/dL AST 19 (5-31) U/L ALT 16 (0-31) U/L Alkaline Phosphatase 77 (39-117) U/L Troponin I High Sens < 2.7 (<3.5-17.0) ng/L Total Protein 7.0 (6.5-8.0) g/dL Albumin 4.2 (3.5-5.0) g/dL Lipase 20 (8-78) U/L Beta HCG, Quant < 2 mIU/mL Influenza Type A (PCR) NEGATIVE (Negative) Influenza Type B (PCR) NEGATIVE (Negative) RSV RNA Qual (PCR) NEGATIVE (Negative) SARS-CoV-2 RNA (RT-PCR) NEGATIVE (Negative) Independent Interpretation I performed an independent interpretation of an: EKG and Plain X-Ray Interpretation: My independent interpretation patient's 12 EKG done on 08/01/2024 at 12:06 hours he was as follows: Sinus rhythm with a rate of 77, normal [place] interval, QRS duration QTC interval, no ST segment elevation, no ST segment depression, no PACs or PVCs, inverted T-waves V1 and V2 compared to EKG dated 03/16/2017 at 11:14 hours, no significant change My independent interpretation patient's two view chest x-ray is as follows: No acute disease Radiology Impression Discussion of test interpretation with radiology: I have reviewed the radiologist's reading. Radiologist Impression: XR chest 2V IMPRESSION: No acute cardiopulmonary abnormality. Electronically signed by: Simba Garland MD 08/01/2024 12:57 PM EDT Prescription Management I considered prescription management with: Pain Medication (Ketorolac 10 mg q.6 hours as needed for pain) Discharge Plan Discharge Clinical Impression: Acute costochondritis Patient Disposition: Home, Self-Care Instructions: Costochondritis (ED) Additional Instructions: Your blood work was unremarkable except for a slightly low potassium which is not related to your chest pain Your chest x-ray was normal. Your EKG was normal and unchanged from an EKG from 2017 On your exam you did have significant tenderness over the joints on the left side of your chest. Your symptoms and physical exam findings are consistent with inflammation of the chest joints (costochondritis). You were treated with Toradol (ketorolac) 60 mg IM. Take Toradol 10 mg pills, 1 pill every 6 hours as needed for pain. While your taking Toradol do not take any other NSAIDs (ibuprofen, Motrin, Advil, Aleve, naproxen, aspirin). Follow-up with your doctor in 2 days. Please return to the emergency department if your symptoms get worse or if you develop any symptoms that are concerning to you. Please see the return to work note Prescriptions: New ketorolac 10 mg tablet 10 mg PO Q6H PRN (Reason: pain) 5 Days Qty: 20 0RF No Action prednisone 20 mg tablet 40 mg PO DAILY 4 Days Qty: 8 0RF amoxicillin-pot clavulanate [Augmentin] 875-125 mg tablet 1 tab PO BID Qty: 13 0RF ondansetron HCl [Zofran] 4 mg tablet 4 mg PO Q8H PRN (Reason: nausea and vomiting) Qty: 7 0RF lidocaine [Lidoderm] 5 % adhesive patch,medicated 1 patch topical DAILY Qty: 15 0RF Rx Instructions: leave on most painful area for up to 12 hrs cyclobenzaprine 10 mg tablet 10 mg PO TID PRN (Reason: muscle spasm) Qty: 15 0RF naproxen 500 mg tablet 500 mg PO BID PRN (Reason: pain) Qty: 30 0RF aspirin [Adult Low Dose Aspirin] 81 mg tablet,delayed release (DR/EC) 81 mg PO DAILY tramadol 50 mg tablet 50 mg PO TID PRN gabapentin 100 mg capsule 100 mg PO TID amlodipine 2.5 mg tablet 2.5 mg PO DAILY Stand Alone Forms: Work/School Release Print Language: Tajik
--- NOTE | 2024-08-01 12:04 | ECG_ITS ---
Test Reason : CP Blood Pressure : */* mmHG Vent. Rate : 77 BPM Atrial Rate : 77 BPM P-R Int : 140 ms QRS Dur : 80 ms QT Int : 380 ms P-R-T Axes : 49 72 50 degrees QTcB Int : 430 ms Normal sinus rhythm with sinus arrhythmia Normal ECG When compared with ECG of 16-Mar-2017 11:14, No significant change was found Referred By: Sathya Murdock Electronically Signed By: Ivan Lucas
[2024-08-01 12:18] LABS: MANUAL DIFF FLAG NO
[2024-08-01 12:21] LABS: Basophils Percent Auto 0.5 % (0-2); Eosinophils Absolute Auto 0.2 X10*3/uL (0.0-0.4); Eosinophils Percent Auto 2.1 % (0-4); Hematocrit 41.8 % (37.0-47.0); Hemoglobin 14.3 g/dl (12.0-16.0); Imm Gran Abs Auto 0.04 X10*3/uL (0.00-0.03); Imm Gran Pct Auto 0.5 % (0.0-0.4); Lymphocytes Absolute Auto 2.5 X10*3/uL (1.2-4.9); Lymphocytes Percent Auto 29.6 % (20-40); Mean Corpuscular HGB Conc 34.2 g/dl (31.0-35.0); Mean Corpuscular Volume 90.7 fL (80.0-98.0); Mean Platelet Volume 9.5 fL (9.4-12.3); Monocytes Absolute Auto 0.5 X10*3/uL (0.1-1.2); Monocytes Percent Auto 6.3 % (2-11); Neutrophils Absolute Auto 5.1 x10*3/uL (2.0-8.3); Platelet Count 205 X10*3/uL (160-400); Red Blood Count 4.61 X10*6/uL (4.20-5.50); Red Cell Distribution Width 13.3 % (11.0-16.0); White Blood Count 8.3 X10*3/uL (4.8-10.8)
[2024-08-01 12:44] LABS: Alanine Aminotransferase 16 U/L (0-31); Albumin Level 4.2 g/dL (3.5-5.0); Alkaline Phosphatase 77 U/L (39-117); Anion Gap 7 (12-20); Aspartate Amino Transferase 19 U/L (5-31); Bilirubin Total 0.5 mg/dL (0.0-1.0); Blood Urea Nitrogen 9 mg/dL (9-16); Calcium 9.1 mg/dL (8.4-10.2); Carbon Dioxide 27 mmol/L (22-29); Chloride 110 mmol/L (96-108); Creatinine Clr Calc Pharmacy 91.5; Estimated Glomerular Filt Rate > 60; Glucose Random 82 mg/dL (60-115); Lipase 20 U/L (8-78); Potassium 3.2 mmol/L (3.3-5.1); Sodium 141 mmol/L (135-145)
[2024-08-01 12:45] LABS: Troponin-I High Sensitivity < 2.7 ng/L (<3.5-17.0)
[2024-08-01 12:47] LABS: HCG Quantitative < 2 mIU/mL
[2024-08-01 13:02] LABS: Influenza A PCR NEGATIVE (Negative); Influenza B PCR NEGATIVE (Negative); Resp Syncy Virus RNA Qual PCR NEGATIVE (Negative); SARS COV2 PCR INHOUSE NEGATIVE (Negative)
[2024-08-01 14:48] VITALS: BP 120/76; PULSE 72; RESP 16; TEMP 36.9; O2SAT 98
[2024-08-01] MEDS: Ketorolac Tromethamine 60 MG/2 ML VIAL IM (14:50)
--- OUTSIDE RECORDS SUMMARY | 2024-08-01 14:52 | XMS_ITS | Clinical Summary ---
Author Organization [employer] Address [address] [facility] 7[address] [place] [address] Care Team Providers Care Implementation Specialist Name Role Phone Janice Valle NP Primary Care Provider [phone] Allergies No known active allergies Medications buPROPion SR (Wellbutrin SR) 150 MG 12 hr tabletIndicatio ns:Mood disorder (CMS/HCC) Take 1 tablet po q am and afternoon. Do not crush, chew, or split. 60 tablet 1 3 Active Additional Information Patient not taking.Reported on 04/14/2024 QUEtiapine (SEROquel) 25 MG tabletIndicatio ns:Mood disorder (CMS/HCC) Take 1 tablet (25 mg) by mouth at bedtime. 30 tablet 3 Active amLODIPine (Norvasc) 5 MG tabletIndicatio ns:Raynaud's disease without gangrene Take 1 tablet (5 mg) by mouth in the morning. 90 tablet 3 Active Additional Information Patient not taking.Reported on 04/14/2024 Acetaminophen 500 MG capsule Take one to two tablets as needed for fever or pain every 6 hours 30 capsule 4 Active Additional Information Patient not taking.Reported on 04/14/2024 Active Problems Problem Noted Date Diagnosed Date Herpes zoster without complication 02/04/2023 Assessment & Plan (02/04/2023 2:24 PM EDT): Pt here with c/o new onset of right sided rib cage pain 10 days ago, 2 days ago developed a blistering erythematous rash on the right side of her abdomen described as burning, follows a dermatomal distribution Exam indicative of Herpes Zoster Plan: Valtrex 1 G TID x 10 days Discussed with patient the need to avoid contact with immunocompromised individuals, 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 Also discussed contact precautions at home Mood disorder 08/18/2021 02/19/2023 Dorsalgia of lumbar region 01/25/201702/19 Tension-type headache 01/25/2017 02/19/2023 Encounters Date Type Department Care Team Description 07/12/2024 11:00 AM EDT Office Visit [facility] [address] [place] [address] Chichi Oneill Dental calculus (Primary Dx); Subgingival dental calculus; Dental plaque 07/07/2024 Population Health Risk Score [facility] ([facility]) Department [address] [place] [id number] Provider, Population Health Generic 05/25/2024 11:00 AM EST Office Visit [facility] [address] [place] [address] Chichi Oneill Dental plaque (Primary Dx); Dental calculus; Subgingival dental calculus; Tartar deposits on teeth 05/25/2024 Telephone [facility] [address] [place] [address] Chichi Oneill from Last 3 Months Immunizations Name Administration Dates Next Due Influenza injectable quadrivalent preservative f ree 06/07/2015 Social History Tobacco Use Types Packs/Day Years Used Date Smoking Tobacco: Every Day Cigarettes Passive Smoke Exposure: Current Smokeless Tobacco: Never Tobacco Cessation:Ready to Q uit: Not Asked; Counseling Given: Not Answered Alcohol Use Standard Drinks/Week Comments Never 0 (1 standard drink = 0.6 oz pur e alcohol) Depression Answer Date Recorded Patient Health Questionnaire-9 Score 0 02/19/2023 Patient Health Questionnaire-9 Score 0 02/19/2023 Last PHQ-9: Questionnaire Data Not on file 1 Housing Stability Answer Date Recorded What is your housing situation today? I do not have housing (Staying with others, in a hotel, in a [place] [facility] [place], living outside on the street, on a beach, in a car, or in a park 02/12/[address] you li ve. Do you have problems with any of the following? None of the above 02/12/2023 Food Insecurity Answer Date Recorded Within the past 12 months, y ou worried that your food would run out before you got money to buy more: Often true 02/12/2023 Within the past 12 months,th e food you bought just didn't last and you didn't have enough money to get more: Often true Transportation Answer Date Recorded In the past 12 months, has l ack of transportation kept you from medical appts, meetings, work or from getting things needed for daily living? No 02/12/2023 Utilities Answer Date Recorded In the past 12 months, has t he electric, gas, oil or water company threatened to shut off services in your home? No 02/12/2023 Depression Answer Date Recorded Patient Health Questionnaire-2 Score 0 02/19/2023 Comments Unknown Sex and Gender Information Value Date Recorded Sex Assigned at Female 02/23/2022 10:14 AM EDT Legal Sex Female 10:14 AM EDT Gender Identity Female 02/23/2022 10:14 AM EDT Sexual Orientation Choose not to disclose 2021 10:14 AM EDT Last Filed Vital Signs Vital Sign Reading Time Taken Comments Blood Pressure 120/76 07/12/2024 11:27 AM EDT Pulse 82 09/27/2023 1:12 PM EDT Temperature 36.8 ??C (98.2 ??F) 09/27/2023 1:12 PM ED T Respiratory Rate 18 09/27/2023 1:12 PM EDT Oxygen Saturation 99% 09/27/2023 1:12 PM EDT Inhaled Oxygen Concentration - - Weight 70.3 kg (155 lb) 09/27/2023 1:12 PM EDT Height 162.6 cm (5' 4 ) 02/19/2023 1:47 PM EDT Body Mass Index 26.61 02/19/2023 1:47 PM EDT Plan of Treatment Health Maintenance Due Date Last Done Comments HIV Screening 1985 Alcohol/Substance Use Screening 1997 Family Planning (PISQ) 2000 Hepatitis C Screening 09/26/2003 DTaP/Tdap/Td Vaccines (1 - Tdap) 2004 Hepatitis B Vaccines (1 of 3 - 19+ 3-dose series) 2004 Pneumococcal Vaccine: Pediatrics (0 to 5 Years) and At-Risk Patients (6 to 49) Years) (1 of 2 - PCV) 2004 COVID-19 Vaccine (3 - season) 2023 09/11/2020, 08/21/2020 Influenza Vaccine (#1) 2023 06/07/2015 Cervical Cancer Screening 01/06/2024 HPV/Cotest 01/06/2024 01/05/2019 Pap Smear 01/06/2024 01/05/2019 SDOH Screening 02/13/2024 02/12/2023 Depression Screening 02/20/2024 02/19/2023, 02/20/20 23 Dental Oral Exam 10/14/2024 04/14/2024, , 02/22/2019, Additional history exists Dental Prophylaxis 10/14/2024 04/14/2024, 0 11/13/2020, 02/22/2019, Additional history exists Lipid Panel 01/04/2025 01/05/2020 Dental X-Ray: Bitewings 04/15/2025 04/14/20 24, 11/13/2020, 02/22/2019, Additional history exists Tobacco Screening 07/12/2025 07/12/2024 Dental X-Ray: Full Mouth 04/15/2027 024, 02/22/2019, 02/04/2016 Zoster Vaccines (1 of 2) 09/26/2035 RSV Patients and Patients Aged 60 years or older (1 - 1-dose 75+ series) 2060 HIB Vaccines Aged Out No longer eligi ble based on patient's age to complete this topic HPV Vaccines Aged Out No longer eligi ble based on patient's age to complete this topic Hepatitis A Vaccines Aged Out No long er eligible based on patient's age to complete this topic IPV Vaccines Aged Out No longer eligi ble based on patient's age to complete this topic Meningococcal Vaccine Aged Out No dorota nicolás eligible based on patient's age to complete this topic RSV under 20 months Aged Out No longe r eligible based on patient's age to complete this topic Rotavirus Vaccines Aged Out No longer eligible based on patient's age to complete this topic Procedures Procedure Name Priority Date/Time Associated Diagnosis Comments CASE PRESENTATION, DETAILED AND EXTENSIVE TREATMENT PLANNING Routine 07/12/2024 11:00 AM EDT ORAL HYGIENE INSTRUCTIONS Routine 07/12/2024 11:00 AM EDT Dental calculus Subgingival dental calculus Dental plaque LR PERIODONTAL SCALING AND ROOT PLANING - 1 TO 3 TEETH PER QUADRANT Routine 07/12/2024 11:00 AM EDT Dental calculus Subgingival dental calculus Dental plaque UR PERIODONTAL SCALING AND ROOT PLANING - 1 TO 3 TEETH PER QUADRANT Routine 07/12/2024 11:00 AM EDT Dental calculus Subgingival dental calculus Dental plaque CASE PRESENTATION, DETAILED AND EXTENSIVE TREATMENT PLANNING Routine 05/25/2024 11:00 AM EST ORAL HYGIENE INSTRUCTIONS Routine 05/25/2024 11:00 AM EST Dental plaque Dental calculus Subgingival dental calculus Tartar deposits on teeth LL PERIODONTAL SCALING AND ROOT PLANING - 4 OR MORE TEETH PER QUADRANT Routine 05/25/2024 11:00 AM EST Dental plaque Dental calculus Subgingival dental calculus Tartar deposits on teeth UL PERIODONTAL SCALING AND ROOT PLANING - 4 OR MORE TEETH PER QUADRANT Routine 05/25/2024 11:00 AM EST Dental plaque Dental calculus Subgingival dental calculus Tartar deposits on teeth PROPHYLAXIS - ADULT Routine 04/14/2024 1 0:00 AM EST Dental calculus Dental plaque Tartar deposits on teeth Periodontal disease INTRAORAL - COMPLETE SERIES OF RADIOGRAPHIC IMAGES Routine 04/14/2024 10:00 AM EST PERIODIC ORAL EVALUATION - ESTABLISHED PATIENT Routine 04/14/2024 10:00 AM EST LIPID PANEL, STANDARD Routine 01/05/2020 10:24 AM EDT HM PAP/HPV Routine 01/05/2019 from Last 3 Months or Most Recently Relevant to Health Maintenance Results * (ABNORMAL) LIPID PANEL, STANDARD (01/05/2020 10:24 AM EDT) Cholesterol, Total 132 <200 mg/dL [facility] LDL Cholesterol 73 mg/dL (calc) [facility] Comment: Reference range: <100 ?? Desirable range <100 mg/dL for primary prevention; ?? <70 mg/dL for patients with CHD or diabetic patients ?? with > or = 2 CHD risk factors. ?? LDL-C is now calculated using the Ludwig-Starkey ?? calculation, which is a validated novel method providing ?? better accuracy than the Friedewald equation in the ?? estimation of LDL-C. ?? Ludwig GALLEGOS et al. GEORGES. 2013;310(19): 3838-6035 ?? (http://[employer] Labs/faq/PUE366) Chol/HDLC Ratio 3.2 <5.0 (calc) [facility] Triglycerides 93 <150 mg/dL [facility] Cholesterol, Total 132 <200 mg/dL [facility] Non-HDL Cholesterol 91 <130 mg/dL (calc) [facility] Comment: For patients with diabetes plus 1 major ASCVD risk ?? factor, treating to a non-HDL-C goal of <100 mg/dL ?? (LDL-C of <70 mg/dL) is considered a therapeutic ?? option. Chol/HDLC Ratio 3.2 <5.0 (calc) [facility] HDL Cholesterol 41(L) > OR = 50 mg/dL [facility] LDL Cholesterol 73 mg/dL (calc) [facility] Comment: Reference range: <100 ?? Desirable range <100 mg/dL for primary prevention; ?? <70 mg/dL for patients with CHD or diabetic patients ?? with > or = 2 CHD risk factors. ?? LDL-C is now calculated using the Ludwig-Starkey ?? calculation, which is a validated novel method providing ?? better accuracy than the Friedewald equation in the ?? estimation of LDL-C. ?? Ludwig GALLEGOS et al. GEORGES. 2013;310(19): 9768-8748 ?? (http://[employer]/faq/IMO388) Triglycerides 93 <150 mg/dL [facility] HDL Cholesterol 41(L) > OR = 50 mg/dL [facility] Non-HDL Cholesterol 91 <130 mg/dL (calc) [facility] Comment: For patients with diabetes plus 1 major ASCVD risk ?? factor, treating to a non-HDL-C goal of <100 mg/dL ?? (LDL-C of <70 mg/dL) is considered a therapeutic ?? option. 01/05/2020 10:2 4 AM EDT [employer] [facility] BLOOD ORDERABLES Final Result [facility] [address] [place] [address], * Pap Smear (01/05/2019) Pap Negative for intraephithelial lesion or malignancy Negative for intraephithelial lesion or malignancy, Other HPV Undetected Undetected, Indeterminate, Quantitative, Not Detected Historical Provider HEALTH MAINTENANCE Final Result from Last 3 Months or Most Recently Relevant to Health Maintenance Insurance [facility] C3 DENTAL-[facility] MEDICAID STAND ADULT Care Teams Implementation Specialist Relationship Specialty Start Date End Date Janice Valle NP [address] [place] [id number] PCP - General Family Medicine 02/19/23
--- OUTSIDE RECORDS SUMMARY | 2024-08-01 14:52 | XMS_ITS | Clinical Summary ---
Author Organization [facility] Address [address] [place] [address] Care Team Providers Care Back Tacker Name Role Phone Unavailable Primary Care Provider Unavailabl e Surgical History Surgery Date Site/Laterality Comments OTHER SURGICAL HISTORY PROCEDURE: DENIES PREVIOUS SURGERY Medical History Medical History Date Comments Anxiety state DX:Anxiety state Family History Medical History Relation Name Comments Hypertension Father Coronary artery disease Maternal Grandfather Diabetes Maternal Grandfather Hypertension Maternal Grandfather Diabetes Maternal Grandmother Hypertension Maternal Grandmother Hypertension Mother Stroke Mother Diabetes Paternal Grandfather Diabetes Paternal Grandmother Relation Name Status Comments Father Maternal Grandfather Maternal Grandmother Mother Paternal Grandfather Paternal Grandmother Social History Tobacco Use Types Packs/Day Years Used Date Smoking Tobacco: Some Days Cigarettes 0.3 14.9 Started: 09/10/2009 Smokeless Tobacco: Never Alcohol Use Standard Drinks/Week Comments Yes 0 (1 standard drink = 0.6 oz pur e alcohol) Comments Unknown Sex and Gender Information Value Date Recorded Sex Assigned at Not on file Legal Sex Female 11:44 PM EST Gender Identity Not on file Sexual Orientation Not on file Obstetrics History Plan of Treatment Health Maintenance Due Date Last Done Comments DTaP,Tdap,and Td Vaccines (1 - Tdap) 2004 Hepatitis B Vaccines (1 of 3 - 19+ 3-dose series) 2004 Cervical Cancer Screening: P ap Smear 01/05/2022 01/05/2019 COVID-19 Vaccine ( - 2023-2 5 season) 2023 Influenza Vaccine (#1) 2023 HIB Vaccines Aged Out No longer eligi [...] on patient's age to complete this topic MMR Vaccines Aged Out No longer eligi ble based on patient's age to complete this topic Meningococcal ACWY Vaccine Aged Out N o longer eligible based on patient's age to complete this topic Meningococcal B Vaccine Aged Out No l onger eligible based on patient's age to complete this topic Pneumococcal Vaccine: Pediat rics (0 to 5 Years) and At-Risk Patients (6 to 64 Years) Aged Out No longer eligi ble based on patient's age to complete this topic RSV Immunization Patients Un ange 20 months Aged Out No longer eligible b ased on patient's age to complete this topic Varicella Vaccines Aged Out No longer eligible based on patient's age to complete this topic Procedures Procedure Name Priority Date/Time Associated Diagnosis Comments PAP SMEAR Routine 01/05/2019 from Last 3 Months or Most Recently Relevant to Health Maintenance Results * Pap smear (01/05/2019) 01/05/2019 Narrative HISTORICAL TESTING LAB RESULTING AGENCY - 01/10/2019 1:20 PM EDT [id number] THINPREP PAP, IMAGED: NEGATIVE FOR SQUAMOUS INTRAEPITHELIAL LESION AND MALIGNANCY . ALBERT LEE(ASCP) (CASE ELECTRONICALLY SIGNED 01 09 2019) RESULT OF APTIMA HIGH RISK HPV ASSAY: HIGH RISK HPV: ??NEGATIVE (SEROTYPES 16,18,31,33,35,39,45,51,52,56,58,59,66,68) COMPLETED ON 2019-01-06 ADEQUACY: SATISFACTORY ENDOCERVICAL/TRANSFORMATION ZONE COMPONENT PRESENT. SOURCE: THINPREP PAP HPV ANY DX: ??REFLEX 16 AND 18, CERVICAL, IMAGED CLINICAL INFORMATION: HPV ANY DIAGNOSIS. Z12.4, Z01.419, HORMONES LMP 11/2018 [facility] CYTOLOGY ORDERABLES Final Result HISTORICAL TESTING LAB RESULTING AGENCY from Last 3 Months or Most Recently Relevant to Health Maintenance
--- OUTSIDE RECORDS SUMMARY | 2024-08-01 14:52 | XMS_ITS | Encounter Summary ---
Author Organization [employer] Address [address] [facility] [address] [place] [address] Care Team Providers Care Housekeeping Aid Name Role Phone Janice Valle NP Primary Care Provider [phone] Encounter Details Date Type Department Care Team ([facility] st Contact Info) Description 03/02/2023 Abstract [facility] [address] [place], [place] [phone] Janice Valle NP [address] [place] [address] Social History Tobacco Use Types Packs/Day Years Used Date Smoking Tobacco: Every Day Cigarettes Passive Smoke Exposure: Current Smokeless Tobacco: Never Alcohol Use Standard Drinks/Week Comments Never 0 [...] with others, in a hotel, in a snf, living outside on the street, on a [...] not to disclose 2021 10:14 AM EDT documented as of this encounter Plan of Treatment Not on file documented as of this encounter Visit Diagnoses Not on filedocumented in this encounter Additional Health Concerns Assessment Noted Time PHQ-9 Depression Total Score: 0 02/20/20 1:49 PM EDT documented as of this encounter Care Teams Housekeeping Aid Relationship Specialty Start Date End Date Janice Valle NP [address] [place] [id number] PCP - General Family Medicine 02/19/23 documented as of this encounter
--- OUTSIDE RECORDS SUMMARY | 2024-08-01 14:52 | XMS_ITS | Encounter Summary ---
Author Organization [employer] [facility] Address [address] [place] [address] [address] [place] [address] Care Team Providers Care Gas Combustion Engineer Name Role Phone Soniya Ledesma Primary Care Provider [phone] Janice Valle NP Primary Care Provider [phone] Encounter Details Date Type Department Care Team (Latest Contact Info) Description 02/22/2019 Abstract [facility] CONVERSIONS Dental, Provider, DDS Social History Tobacco Use Types Packs/Day Years Used Date Smoking Tobacco: Never Assessed Comments Unknown Sex and Gender Information Value [...] Diagnoses Not on filedocumented in this encounter Care Teams Gas Combustion Engineer Relationship Specialty Start Date End Date Soniya Ledesma FNP [address] [place] [id number] PCP - General Family Medicine 12/22/21 09/21/22 Janice Valle NP [address] [place] [address] PCP - General Family Medicine 02/19/23 documented as of this encounter
--- OUTSIDE RECORDS SUMMARY | 2024-08-01 14:52 | XMS_ITS | Encounter Summary ---
Author Organization [facility] Address [address] [place] [address] [address] [place] [address] Care Team Providers Care Tube Repairer Name Role Phone Soniya Ledesma Primary Care Provider [phone] Janice Valle NP Primary Care Provider [phone] Encounter Details Date Type Department Care Team (Latest Contact Info) Description 11/13/2020 Abstract [facility] CONVERSIONS Dental, Provider, DDS Social History Tobacco [...] on filedocumented in this encounter Care Teams Tube Repairer Relationship Specialty Start Date End Date Soniya Ledesma FNP [address] [place] [id number] PCP - General Family Medicine 12/22/21 09/21/22 Janice Valle NP [address] [place] [address] PCP - General Family Medicine 02/19/23 documented as of this encounter
[2024-08-01 14:55] VITALS: BP 120/76; PULSE 72; RESP 16; TEMP 36.9; O2SAT 98
== END 2024-08-01 14:55 | disposition home or self-care (01) ==
PROVIDERS: Physician Assistant; Emergency Provider Emergency Medicine Emergency Medical Services
DX: M94.0 Chondrocostal junction syndrome [Tietze] (principal); F17.210 Nicotine dependence, cigarettes, uncomplicated; Z03.818 Encounter for observation for suspected exposure to other biological agents ruled out
CPT/HCPCS: 0241U; 71046; 80053; 83690; 84484; 84702; 85025; 93005; 96372; 99284; J1885

== ENCOUNTER → 2024-08-01 12:04 | Outpatient (BNV) | payer MEDICAID, SELFPAY | PROVIDERS: Emergency Provider Emergency Medicine Emergency Medical Services; Visit Provider Internal Medicine Cardiovascular Disease | DX: R07.9 Chest pain, unspecified (principal) | CPT/HCPCS: 93010 ==

== ENCOUNTER → 2024-08-01 12:04 | Outpatient (BNV) | payer MEDICAID, SELFPAY | PROVIDERS: Visit Provider Radiology Diagnostic Radiology | DX: R07.9 Chest pain, unspecified (principal) | CPT/HCPCS: 71046 ==

== ENCOUNTER 2025-01-01 05:50 | Emergency (ER) | payer MEDICAID, SELFPAY ==
--- NOTE | ~2025-01-01 | XR_ITS ---
CLINICAL HISTORY: painful on ambulation 3 view right foot Comparison: None provided Findings: No fractures or dislocations. No significant loss of joint space, osteophytes, or erosions. No ankle effusion. No radiopaque foreign body. IMPRESSION: 1. No acute findings. This document has been electronically signed by: Saad Hairston MD on 01/01/2025 07:05:36
[2025-01-01 05:56] VITALS: BP 132/80; PULSE 90; RESP 16; TEMP 36.7; O2SAT 100; BMI 29.2
[2025-01-01 06:22] LABS: MANUAL DIFF FLAG NO
[2025-01-01 06:23] LABS: Hematocrit 38.9 % (37.0-47.0); Hemoglobin 13.2 g/dl (12.0-16.0); Imm Gran Abs Auto 0.02 X10*3/uL (0.00-0.03); Imm Gran Pct Auto 0.3 % (0.0-0.4); Lymphocytes Absolute Auto 1.7 X10*3/uL (1.2-4.9); Mean Corpuscular HGB Conc 33.9 g/dl (31.0-35.0); Mean Corpuscular Hemoglobin 31.2 pg (27.0-33.0); Mean Corpuscular Volume 92.0 fL (80.0-98.0); NRBC Abs Auto 0.000 X10*3/uL (0.0-0.012); NRBC Pct Auto 0.0 /100WBC (0.0-0.2); Platelet Count 177 X10*3/uL (160-400); Red Blood Count 4.23 X10*6/uL (4.20-5.50); White Blood Count 7.7 X10*3/uL (4.8-10.8)
--- NOTE | 2025-01-01 06:31 | ED.LOWEXIN ---
HPI - Extremity Injury (Lower) General Chief Complaint: Extremity Injury, Lower Stated Complaint: R Foot pain Time Seen by Provider: 01/01/25 06:08 Source: patient Mode of arrival: ambulatory Limitations: no limitations History of Present Illness ED Provider: HPI Narrative: 39-year-old woman presenting with right foot pain, left foot documented in triage and is not correct, patient had some other unrelated reports regarding recent vacation in [place], the with that said she is presenting with right foot pain at the plantar aspect, worse when she takes the 1st few steps in the morning, no fevers or chills no redness no swelling is reported. Related Data Home Medications ?Medication ?Instructions ?Recorded ?Confirmed amlodipine 2.5 mg tablet 2.5 mg PO DAILY 07/04/20 aspirin 81 mg tablet,delayed 81 mg PO DAILY 07/04/20 release (Adult Low Dose Aspirin) gabapentin 100 mg capsule 100 mg PO TID 07/04/20 tramadol 50 mg tablet 50 mg PO TID PRN 07/04/20 Previous Rx's ?Medication ?Instructions ?Recorded amoxicillin 875 mg-potassium 1 tab PO BID #13 tabs 08/16/20 clavulanate 125 mg tablet (Augmentin) prednisone 20 mg tablet 40 mg (2 x 20 mg) PO DAILY 4 days 08/16/20 #8 tabs ondansetron HCl 4 mg tablet 4 mg PO Q8H PRN nausea and 11/19/20 (Zofran) vomiting #7 tabs cyclobenzaprine 10 mg tablet 10 mg PO TID PRN muscle spasm #15 01/24/23 tabs lidocaine 5 % topical patch 1 patch topical DAILY #15 ea 01/24/23 (Lidoderm) naproxen 500 mg tablet 500 mg PO BID PRN pain #30 tabs 01/24/23 ketorolac 10 mg tablet 10 mg PO Q6H PRN pain 5 days #20 08/01/24 tabs methylprednisolone 4 mg tablets in 4 mg PO DAILY #21 ea 01/01/25 a dose pack (Medrol (Chidi)) Allergies Allergy/AdvReac Type Severity Reaction Status Date / Time No Known Allergies (No Known Allergy Verified 01/01/25 05:58 Allergies*) Review of Systems Constitutional: Constitutional: Reports as per [facility] Past Medical History Medical History Allergic rhinitis Raynauds phenomenon Circulation problem Surgical History Hx of tonsillectomy Social History Social History Alcohol intake: current Alcohol intake frequency: holidays/special occasions only Alcohol type: wine Smoked in Last 30 Days: Yes Use of substances other than those prescribed or required for medical reasons: Yes Substance Use Type: Marijuana Substance Use Frequency: Daily Last Used Substance: Hours (ago) Advance Directives: No Advance Directives Information Provided: No Do you have a plan to hurt others: No Plan Patient : No Physical Exam Vital Signs: Vital Signs: Last Vital Signs Temp 98.0 F 01/01/25 05:56 Pulse 90 01/01/25 05:56 Resp 16 01/01/25 05:56 BP 132/80 01/01/25 05:56 Pulse Ox 100 01/01/25 05:56 O2 Del Method Room Air 01/01/25 05:56 BMI result Body Mass Index 29.2 Const: Other: Gen: ?Overall well-appearing patient MSK: FROM, strength 5/5 all extremities, patient has midfoot tenderness over the plantar fascia, no tenderness along midfoot joint dorsally, no tenderness along the plantar fascia insertion, no ankle edema, distal pulses intact, compartments are soft, full range of motion of the hip and the knee on the same side Skin: Warm, dry, intact, Neuro: ?Alert and oriented x3, moving upper and lower extremities symmetrically, no obvious facial asymmetry noted Medical Decision Making Medical Decision Making MDM Narrative: 7:03 AM 01/01/2025 (Dr. Gentry Cantrell): Patient evaluated with right foot pain, physical examination is overall reassuring, there was no evidence for neurovascular compromise, pulses a great, she has no evidence to suspect DVT, there was no injury reported or there is no findings to suspect midfoot injury, I was wondering whether she has a sigmoiditis or plantar fasciitis, she may have tear of the plantar fascia Differential Diagnosis Differential Diagnoses: The differential diagnosis associated with the presentation includes Admission/Observation Consideration of admission/observation: Escalation of care including admission/observation considered (If there was any concern for septic joint or midfoot fracture but workup has been reassuring she is can be discharged) 2022 Emergency Medicine Coding Guide from [employer] on 01/01/2025 All calculations should be rechecked by clinician prior to use RESULT SUMMARY: 4 Estimated Level of Service Problems: Moderate (4) Risk: Moderate (4) Data: Extensive (5) NARRATIVE MDM: This patient's problem complexity is Moderate as patient: has a new undiagnosed problem with uncertain prognosis but that could be serious. This patient's risk is Moderate due to: overall presentation requiring evaluation for a potentially Moderate-risk process. This patient's data complexity is Extensive due to: -multiple tests ordered -independent interpretation of imaging or EKG INPUTS: Number and Complexity ?> 5 = 4: undiagnosed new problem, uncertain outcome (e) Risk level ?> 3 = Moderate Tests ordered ?> 2 = 2 Tests results reviewed (excluding labs) ?> 1 = 1 Prior external notes reviewed ?> 0 = 0 Assessment requiring and independent historian ?> 0 = No Independent interpretation of tests ?> 1 = Yes Discussed management/test interpretation w/external professional ?> 0 = No Lab Data [facility] Lab Attestation statement: I reviewed the patient's lab results. 01/01/25 06:18 01/01/25 06:18 Labs: Lab Results 01/01/25 Range/Units 06:18 WBC 7.7 (4.8-10.8) X10*3/uL RBC 4.23 (4.20-5.50) X10*6/uL Hgb 13.2 (12.0-16.0) g/dl Hct 38.9 (37.0-47.0) % MCV 92.0 (80.0-98.0) fL MCH 31.2 (27.0-33.0) pg MCHC 33.9 (31.0-35.0) g/dl RDW 13.3 (11.0-16.0) % Plt Count 177 (160-400) X10*3/uL MPV 9.3 L (9.4-12.3) fL Immature Gran % (Auto) 0.3 (0.0-0.4) % Neut % (Auto) 68.4 (45-73) % Lymph % (Auto) 21.7 (20-40) % [place] % (Auto) 5.9 (2-11) % Eos % (Auto) 3.0 (0-4) % Baso % (Auto) 0.7 (0-2) % Lymph # (Auto) 1.7 (1.2-4.9) X10*3/uL [place] # (Auto) 0.5 (0.1-1.2) X10*3/uL Eos # (Auto) 0.2 (0.0-0.4) X10*3/uL Baso # (Auto) 0.1 (0.0-0.2) X10*3/uL Abs Immat Gran (auto) 0.02 (0.00-0.03) X10*3/uL Absolute Neuts (auto) 5.3 (2.0-8.3) x10*3/uL Absolute Nucleated RBC 0.000 (0.0-0.012) X10*3/uL Nucleated RBC % (auto) 0.0 (0.0-0.2) /100WBC Sodium 143 (135-145) mmol/L Potassium 3.4 (3.3-5.1) mmol/L Chloride 112 H (96-108) mmol/L Carbon Dioxide 23 (22-29) mmol/L Anion Gap 11 L (12-20) BUN 11 (9-16) mg/dL Creatinine 0.77 (0.5-1.4) mg/dL Estim Creat Clear Calc 98.5 Estimated GFR > 60 Random Glucose 106 (60-115) mg/dL Calcium 8.2 L D (8.4-10.2) mg/dL Total Bilirubin 0.5 (0.0-1.0) mg/dL AST 24 (5-31) U/L ALT 16 (0-31) U/L Alkaline Phosphatase 68 (39-117) U/L Total Protein 6.4 L (6.5-8.0) g/dL Albumin 3.9 (3.5-5.0) g/dL Independent Interpretation I performed an independent interpretation of an: Plain X-Ray (No fractures, no foreign bodies, no subcutaneous gas, my independent interpretation) Radiology Impression Discussion of test interpretation with radiology: I have reviewed the radiologist's reading. Prescription Management I considered prescription management with: Pain Medication Discharge Plan Discharge Clinical Impression: Plantar fasciitis of right foot Patient Disposition: Home, Self-Care Instructions: Plantar Fasciitis (ED), Plantar Fasciitis Exercises (ED) Additional Instructions: Continue steroids starting tomorrow as a Medrol Dosepak Ice the area with a bag of I just put your foot down, look up plantar fascia stretching exercises Make sure to wear sneakers that have good arch support, I suspect that the reason why your foot is hurting as because you were wearing last shoes without arch support and maybe doing a lot of walking and injured that area, in the unlikely event that you sustained a tear of the plantar fascia you may need additional studies such as outpatient MRI and follow up with a campaign management specialist. Your blood work x-ray reassuring. Prescriptions: New methylprednisolone [Medrol (Chidi)] 4 mg tablets,dose pack 4 mg PO DAILY Qty: 21 0RF Rx Instructions: Day 1: 24 mg on day 1 administered as 8 mg before breakfast, 4 mg after lunch, 4 mg after supper, and 8 mg at bedtime or 24 mg as a single dose or divided into 2 or 3 doses upon initiation. Day 2: 20 mg on day 2 administered as 4 mg before breakfast, 4 mg after lunch, 4 mg after supper, and 8 mg at bedtime. Day 3: 16 mg on day 3 administered as 4 mg before breakfast, 4 mg after lunch, 4 mg after supper, and 4 mg at bedtime. Day 4: 12 mg on day 4 administered as 4 mg before breakfast, 4 mg after lunch, and 4 mg at bedtime. Day 5: 8 mg on day 5 administered as 4 mg before breakfast and 4 mg at bedtime. Day 6: 4 mg on day 6 administered as 4 mg before breakfast. No Action prednisone 20 mg tablet 40 mg PO DAILY 4 Days Qty: 8 0RF amoxicillin-pot clavulanate [Augmentin] 875-125 mg tablet 1 tab PO BID Qty: 13 0RF ondansetron HCl [Zofran] 4 mg tablet 4 mg PO Q8H PRN (Reason: nausea and vomiting) Qty: 7 0RF lidocaine [Lidoderm] 5 % adhesive patch,medicated 1 patch topical DAILY Qty: 15 0RF Rx Instructions: leave on most painful area for up to 12 hrs cyclobenzaprine 10 mg tablet 10 mg PO TID PRN (Reason: muscle spasm) Qty: 15 0RF naproxen 500 mg tablet 500 mg PO BID PRN (Reason: pain) Qty: 30 0RF ketorolac 10 mg tablet 10 mg PO Q6H PRN (Reason: pain) 5 Days Qty: 20 0RF aspirin [Adult Low Dose Aspirin] 81 mg tablet,delayed release (DR/EC) 81 mg PO DAILY tramadol 50 mg tablet 50 mg PO TID PRN gabapentin 100 mg capsule 100 mg PO TID amlodipine 2.5 mg tablet 2.5 mg PO DAILY Referrals: [facility] [Provider Group] - 10 days Clinical Impression: Plantar fasciitis of right foot Center,[facility] [Primary Care Provider, Medical] Stand Alone Forms: Work/School Release Print Language: Nepali
--- OUTSIDE RECORDS SUMMARY | 2025-01-01 06:36 | XMS_ITS | Clinical Summary ---
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 Also discussed contact precautions at home Mood disorder 08/18/2021 02/19/2023 Dorsalgia of lumbar region 01/25/201702/19 Tension-type headache 01/25/2017 02/19/2023 Immunizations Immunization Administration Dates Next Due Influenza injectable quadrivalent [...] with others, in a hotel, in a jail, living outside on the street, on a [...] 82 09/27/2023 1:12 PM EDT Temperature 36.8 C (98.2 F) 09/27/2023 1:12 PM EDT Respiratory Rate 18 09/27/2023 1:12 PM EDT Oxygen Saturation 99% 09/27/2023 1:12 PM EDT Inhaled Oxygen Concentration - - Weight 70.3 kg (155 lb) 09/27/2023 1:12 PM EDT Height 162.6 cm (5' 4 ) 02/19/2023 1:47 PM EDT Body Mass Index 26.61 02/19/2023 1:47 PM EDT Plan of Treatment Upcoming Encounters Date Type Department Care Team (Late st Contact Info) Description 01/25/2025 10:00 AM EDT Office Visit [facility] [address] [place] [address] Chichi Oneill Health Maintenance Due Date Last Done Comments Disability Screening 1985 Alcohol/Substance Use Screening 1997 Family Planning (PISQ) 2000 HPV Vaccines (1 - 3-dose series) 2000 Hepatitis C Screening 09/26/2003 DTaP/Tdap/Td Vaccines (1 - Tdap) 2004 Hepatitis B Vaccines (1 of 3 - 19+ 3-dose series) 2004 Pneumococcal Vaccine: Pediatrics (0 to 5 Years) and At-Risk Patients (6 to 49) Years (1 of 2 - PCV) 2004 Cervical Cancer Screening 01/06/2024 HPV/Cotest 01/06/2024 01/05/2019 Pap Smear 01/06/2024 01/05/2019 SDOH Screening 02/13/2024 02/12/2023 Depression Screening 02/20/2024 02/19/2023, 02/20/20 23 Dental Oral Exam 10/14/2024 04/14/2024, , 02/22/2019, Additional history exists Dental Prophylaxis 10/14/2024 04/14/2024, 0 11/13/2020, 02/22/2019, Additional history exists COVID-19 Vaccine ( season) 2024 09/11/2020, 08/21/2020 Influenza Vaccine (#1) 2024 06/07/2015 Lipid Panel 01/04/2025 01/05/2020 Dental X-Ray: Bitewings 04/15/2025 04/14/20 24, 11/13/2020, 02/22/2019, Additional history exists Tobacco Screening 07/12/2025 07/12/2024 Dental X-Ray: Full Mouth 04/15/2027 024, 02/22/2019, 02/04/2016 Zoster Vaccines (1 of 2) 09/26/2035 RSV Patients and Patients Aged 60 years or older (1 - 1-dose 75+ series) 2060 HIV Screening Completed 10/22/2021 HIB Vaccines Aged Out No longer eligi [...] Procedure Name Priority Date/Time Associated Diagnosis Comments PROPHYLAXIS - ADULT Routine 04/14/2024 1 0:00 [...] LIPID PANEL, STANDARD (01/05/2020 10:24 AM EDT) [facility] Signature Cholesterol, Total 132 <200 mg/dL [facility] LDL Cholesterol 73 mg/dL (calc) [facility] Comment: Reference range: <100 Desirable range <100 mg/dL for primary prevention; <70 mg/dL for patients with CHD or diabetic patients with > or = 2 CHD risk factors. LDL-C is now calculated using the Ludwig-Starkey calculation, which is a validated novel method providing better accuracy than the Friedewald equation in the estimation of LDL-C. Ludwig SS et al. GEORGES. 2013;310(19): 7377-7214 (http://education.Sproxil.Vaccsys/faq/HLK807) Chol/HDLC Ratio 3.2 <5.0 (calc) [facility] Triglycerides 93 <150 mg/dL [facility] Cholesterol, Total 132 <200 mg/dL [facility] Non-HDL Cholesterol 91 <130 mg/dL (calc) [facility] Comment: For patients with diabetes plus 1 major ASCVD risk factor, treating to a non-HDL-C goal of <100 mg/dL (LDL-C of <70 mg/dL) is considered a therapeutic option. Chol/HDLC Ratio 3.2 <5.0 (calc) [facility] HDL Cholesterol 41(L) > OR = 50 mg/dL [facility] LDL Cholesterol 73 mg/dL (calc) [facility] Comment: Reference range: <100 Desirable range <100 mg/dL for primary prevention; <70 mg/dL for patients with CHD or diabetic patients with > or = 2 CHD risk factors. LDL-C is now calculated using the Ludwig-Starkey calculation, which is a validated novel method providing better accuracy than the Friedewald equation in the estimation of LDL-C. Ludwig SS et al. GEORGES. 2013;310(19): 3264-5836 (http://education.Sproxil.Vaccsys/faq/LZX094) Triglycerides 93 <150 mg/dL [facility] HDL Cholesterol 41(L) > OR = 50 mg/dL [facility] Non-HDL Cholesterol 91 <130 mg/dL (calc) [facility] Comment: For patients with diabetes plus 1 major ASCVD risk factor, treating to a non-HDL-C goal of <100 mg/dL (LDL-C of <70 mg/dL) is considered a therapeutic option. 01/05/2020 10:2 4 AM EDT [employer] LAB BLOOD ORDERABLES Final Result [facility] [address] * Pap Smear (01/05/2019) Pap Negative for intraephithelial lesion or malignancy Negative for intraephithelial lesion or malignancy, Other HPV Undetected Undetected, Indeterminate, Quantitative, Not Detected Historical Provider HEALTH MAINTENANCE Final Result from Last 3 Months or Most Recently Relevant to Health Maintenance Insurance [facility] C3 DENTAL-[facility] MEDICAID STAND ADULT Care Teams Appraiser Art Relationship Specialty Start Date End Date Janice Valle NP [address] [place] [id number] PCP - General Family Medicine 02/19/23
--- OUTSIDE RECORDS SUMMARY | 2025-01-01 06:36 | XMS_ITS | Encounter Summary ---
Author Organization [employer] Address [address] [facility] 7 [place] [address] Care Team Providers Care Sliver Lap Tender Name Role Phone Janice Valle NP Primary Care Provider [phone] Encounter Details Date Type Department Care Team ([facility] st Contact Info) Description 03/02/2023 Abstract [facility] [address] [place], [place] [phone] Janice Valle NP [address] [place], [place] [phone] Social History Tobacco Use Types Packs/Day Years [...] with others, in a hotel, in a penitentiary, living outside on the street, on a [...] as of this encounter Plan of Treatment Upcoming Encounters Date Type Department Care Team (Late st Contact Info) Description 01/25/2025 10:00 AM EDT Office Visit [facility] [address] [place] [address] Chichi Oneill documented as of this encounter Visit Diagnoses Not on filedocumented in this encounter Additional Health Concerns Assessment Noted Time PHQ-9 Depression Total Score: 0 02/20/20 23 1:49 PM EDT documented as of this encounter Care Teams Sliver Lap Tender Relationship Specialty Start Date End Date Janice Valle NP [address] [place] [address] PCP - General Family Medicine 02/19/23 documented as of this encounter
--- OUTSIDE RECORDS SUMMARY | 2025-01-01 06:36 | XMS_ITS | Encounter Summary ---
Author Organization [employer] [facility] Address [address] [place] [address] [address] [place] [address] Care Team Providers Care Street Roller Engineer Name Role Phone Soniya Ledesma Primary Care Provider [phone] Janice Valle NP Primary Care Provider [phone] Encounter Details Date Type Department Care Team (Latest Contact Info) Description 02/22/2019 Abstract [facility] CONVERSIONS Dental, Provider, DDS Social History Tobacco [...] Description 01/25/2025 10:00 AM EDT Office Visit [facility] [address] [place] [address] Chichi Oneill documented as of this encounter Visit Diagnoses Not on filedocumented in this encounter Care Teams Street Roller Engineer Relationship Specialty Start Date End Date Soniya Ledesma FNP [address] [place] [address] PCP - General Family Medicine 12/22/21 09/21/22 Janice Valle NP [address] [place] [address] PCP - General Family Medicine 02/19/23 documented as of this encounter
--- OUTSIDE RECORDS SUMMARY | 2025-01-01 06:36 | XMS_ITS | Encounter Summary ---
Author Organization [email or web address] [facility] Address [address] [place] [address] [address] [place] [address] Care Team Providers Care Screen Printing Paster Name Role Phone Soniya Ledesma Primary Care Provider [phone] Janice Valle NP Primary Care Provider [phone] Encounter Details Date Type Department Care Team (Latest Contact Info) Description 11/13/2020 Abstract [facility] CONVERSIONS Dental, Provider, DDS Social History [...] Description 01/25/2025 10:00 AM EDT Office Visit [facility] [address] [place] [address] Chichi Oneill documented as of this encounter Visit Diagnoses Not on filedocumented in this encounter Care Teams Screen Printing Paster Relationship Specialty Start Date End Date Soniya Ledesma FNP [address] [place] [address] PCP - General Family Medicine 12/22/21 09/21/22 Janice Valle NP [address] [place] [address] PCP - General Family Medicine 02/19/23 documented as of this encounter
--- OUTSIDE RECORDS SUMMARY | 2025-01-01 06:36 | XMS_ITS | Clinical Summary ---
Author Organization [facility] Address [address] [place] [address] Care Team Providers Care Svp Programmatic Tv Name Role Phone Unavailable Primary Care Provider [...] Date Smoking Tobacco: Some Days Cigarettes 0.3 15.3 Started: 09/10/2009 Smokeless Tobacco: Never Alcohol Use [...] Cancer Screening: P ap Smear 01/05/2022 01/05/2019 Depression Screening 04/26/2024 COVID-19 Vaccine ( - 2023-2 5 season) 2024 Influenza Vaccine (#1) 2024 HIB Vaccines Aged Out No longer eligi [...] 5 Years) and At-Risk Patients (6 to 49 Years) Aged Out No longer eligi ble [...] RESULTING AGENCY - 01/10/2019 1:20 PM EDT [id number] THINPREP PAP, IMAGED: NEGATIVE FOR SQUAMOUS INTRAEPITHELIAL LESION AND MALIGNANCY . ALBERT LEE(ASCP) (CASE ELECTRONICALLY SIGNED 01 09 2019) RESULT OF APTIMA HIGH RISK HPV ASSAY: HIGH RISK HPV: NEGATIVE (SEROTYPES 16,18,31,33,35,39,45,51,52,56,58,59,66,68) COMPLETED ON 2019-01-06 ADEQUACY: SATISFACTORY ENDOCERVICAL/TRANSFORMATION ZONE COMPONENT PRESENT. SOURCE: THINPREP PAP HPV ANY DX: REFLEX 16 AND 18, CERVICAL, IMAGED CLINICAL INFORMATION: HPV ANY DIAGNOSIS. Z12.4, Z01.419, HORMONES LMP 11/2018 Sandra Sandoval CNM LAB CYTOLOGY ORDERABLES Final Result HISTORICAL TESTING LAB RESULTING AGENCY from Last 3 Months or Most Recently Relevant to Health Maintenance
[2025-01-01 06:43] LABS: Alanine Aminotransferase 16 U/L (0-31); Albumin Level 3.9 g/dL (3.5-5.0); Alkaline Phosphatase 68 U/L (39-117); Anion Gap 11 (12-20); Aspartate Amino Transferase 24 U/L (5-31); Blood Urea Nitrogen 11 mg/dL (9-16); Calcium 8.2 mg/dL (8.4-10.2); Carbon Dioxide 23 mmol/L (22-29); Chloride 112 mmol/L (96-108); Creatinine Clr Calc Pharmacy 98.5; Estimated Glomerular Filt Rate > 60; Potassium 3.4 mmol/L (3.3-5.1); Sodium 143 mmol/L (135-145); Total Protein 6.4 g/dL (6.5-8.0)
[2025-01-01 07:50] VITALS: BP 129/65; PULSE 87; RESP 16; TEMP 36.6; O2SAT 98
== END 2025-01-01 07:51 | disposition home or self-care (01) ==
PROVIDERS: Emergency Provider Emergency Medicine
DX: M72.2 Plantar fascial fibromatosis (principal); M79.671 Pain in right foot
CPT/HCPCS: 36415; 73630; 80053; 85025; 96374; 96375; 99284; J1100; J1885

== ENCOUNTER → 2025-01-01 06:24 | Outpatient (BNV) | payer MEDICAID, SELFPAY | PROVIDERS: Emergency Provider Emergency Medicine; Visit Provider Radiology Vascular & Interventional Radiology | DX: M79.671 Pain in right foot (principal) | CPT/HCPCS: 73630 ==